=== PATIENT | male | born 1960 | race Caucasian/White ===

== ENCOUNTER 2018-02-05 07:32 | Emergency (ER) | payer BC, OTHER ==
[2018-02-05 07:46] VITALS: TEMP 98.1; BMI 24.2
--- NOTE | 2018-02-05 08:05 | PDOC ---
History of Present Illness - General Chief Complaint: Back Pain Stated Complaint: R/O STONES History Source: Patient Exam Limitations: No Limitations - History of Present Illness Initial Comments: 02/05/18 09:14 HPI: This 57-year-old male presents to the emergency room with complaints of lower back pain bilaterally since Saturday, 2 days after shoveling snow. He states he took some Tylenol but that didn't seem to help. He denies loss of bowel/bladder, numbness, tingling, or weakness to legs. Pt ambulated to ER. Chief Compliant:lower back pain at lumbar sacral region Pain location: bilateral lumbar region pain no pain on spine but to each side Duration: 2 days Modifying factors:shoveled snow. Quality:sharp Radiating:remains in region, no radiation Severity:moderate Time:constant getting worse PMH: HTN, HLD, FH: Pt has not recently traveled outside the country in the last 30 days. Pt has not been in contact with people who have traveled out of the country, in contact with people who have been ill with fever, n, v, d. SH: smoking use: NONE illicit drug use: NONE alcohol use: NONE employment/educational status: sexual history: PSH: none Home med use noted on JAN Allergies:nka Immunizations: PCP: none Cards: Ronaldo Past History - Past Medical History Allergies/Adverse Reactions: Allergies Allergy/AdvReac Type Severity Reaction Status Date / Time No Known Allergies Allergy Verified 02/05/18 07:38 Home Medications: Ambulatory Orders Aspirin 81 mg PO DAILY 02/05/18 Atorvastatin Ca [Lipitor] 0 mg PO HS 02/05/18 Cyclobenzaprine HCl [Flexeril 10 mg] 10 mg PO BID PRN #15 tablet 02/05/18 Metoprolol Succinate [Toprol Xl] 0 mg PO DAILY 02/05/18 Naproxen [Naprosyn -] 375 mg PO Q12H #30 tablet 02/05/18 Cardiac Disorders: Yes (Paroxysmal Rapid Afib/LVH ? by EKG) COPD: No HTN: Yes Hypercholesterolemia: Yes - Surgical History Cholecystectomy: Yes - Immunization History Immunization Up to Date: Yes - Suicide/Smoking/Psychosocial Hx Smoking Status: Yes Smoking History: Never smoked Have you smoked in the past 12 months: No Number of Cigarettes Smoked Daily: 20 Information on smoking cessation initiated: No Hx Alcohol Use: No Drug/Substance Use Hx: No Substance Use Type: None Hx Substance Use Treatment: No Review of Systems - Review of Systems Able to Perform ROS?: Yes Comments:: 02/05/18 09:30 General statement: Lower back pain Hematology: neg history of bleeding/blood thinners ()ASA 81) Skin: Neg for lesions, rash, bruising. HEENT: Neg symptoms Respiratory: Neg SOB or difficulty in breathing Cardiac: Neg chest pain GI: Neg pain, n/v : Neg problems on voiding MS: Neg for joint pain/stiffness, no edema, lower back pain Neuro: Neg for LOC, weakness, Endocrine: Neg for excess thirst/hunger, cold/heat intolerance, excess sweating Allergies: Neg for allergies *Physical Exam - Vital Signs Last Vital Signs Temp Pulse Resp BP Pulse Ox 98.1 F 94 H 20 143/85 99 02/05/18 07:34 02/05/18 07:34 02/05/18 07:34 02/05/18 07:34 02/05/18 07:34 - Physical Exam Comments: 02/05/18 09:31 General Appearance: This 57 yr old male who is uncomfortable from pain V/S: hemodynamically stable, afebrile Skin: WNL of pt's skin color, no signs of pallor, mottling, cyanosis Head:symmetrical Eyes: EOM's intact, PERRLA Ears: denies pain Nose: patent Throat: lips, teeth, gums, tongue, buccal mucos pink and moist Lungs: Chest symmetry equal. Cap refill <3 seconds. Lung sounds clear Cardiac: PMI at R 4MCL space, pos S1 and S2, regular rate. Abdomen: Soft, round, nontender : Not observed Muscularskeletal: Gait steady, ambulated in to ER, no edema +PMS, lower back pain +, No miguel, + reflexes, + weighbear, FROM, neg CV tenderness Neuro: AAOx3, cognitively intact, speech clear and appropriate. ED Treatment Course - LABORATORY CBC & Chemistry Diagram: 02/05/18 08:12 02/05/18 08:12 Medical Decision Making - Medical Decision Making 02/05/18 09:41 57-year-old male presents here with complaints of lower back pain. He states that this began after shoveling snow. He is no numbness or tingling that running down his legs and he ambulated into the emergency room. He's never had this happen before. He has no difficulty in urinating. Plan UA Lumbar sacral x-ray Labs Toradol and IV fluid Ice pack Will reassess 02/05/18 09:54 So complaining of lower back pain had received Toradol and a bag of IV fluids. His UA is negative. His low lumbar sacral x-ray shows some degeneration but does not have any poor spacing. Vertebral spacing within normal limits. At this time and going to discharge the patient to receive some Flexeril and Naprosyn for pain and spasm. I will have him follow-up with his PCP. I will give him a referral for a PCP as he does not have one. *DC/Admit/Observation/Transfer Diagnosis at time of Disposition: Lower back pain Qualifiers: Chronicity: acute Back pain laterality: bilateral Sciatica presence: without sciatica Qualified Code(s): M54.5 - Low back pain - Discharge Dispostion Disposition: HOME Condition at time of disposition: Fair Admit: No - Referrals Referrals: Jonathan Sneed MD [Primary Care Provider] - [facility] [Provider Group] - Patient Instructions Printed Discharge Instructions: DI for Low Back Pain Additional Instructions: Discharge instructions 1. Please follow up with your primary physician within the next few days and explain that you have been seen here in the Emergency Room for lower back pain. 2. If you experience any worsening of symptoms, numbness, tingling, increase pain, please return to the ER 3. Rest, ice, no heavy lifting, bending, pulling, and take pain meds as prescribed. do not drive a care if under influence of medications. 4. Drink plenty of water - Post Discharge Activity Forms/Work/School Notes: Back to Work
[2018-02-05] MEDS ORDERED: SODIUM CHLORIDE 1,000 ML IV STA (08:25)
[2018-02-05] MEDS ORDERED: KETOROLAC TROMETHAMINE 30 MG/1 ML VIAL IVPUSH ONE (08:25)
[2018-02-05] MEDS ORDERED: KETOROLAC TROMETHAMINE 30 MG/1 ML VIAL ONE (08:44)
--- NOTE | 2018-02-05 08:45 | PDOC ---
*Physical Exam - Vital Signs Last Vital Signs Temp Pulse Resp BP Pulse Ox 98.1 F 94 H 20 143/85 99 02/05/18 07:34 02/05/18 07:34 02/05/18 07:34 02/05/18 07:34 02/05/18 07:34 - Physical Exam Comments: 02/05/18 08:44 The patient was examined by [GIRISH Arana] under my direct supervision. I personally evaluated the patient. I concur with the above findings and the plan of care. ED Treatment Course - LABORATORY CBC & Chemistry Diagram: 02/05/18 08:12 02/05/18 08:12 *DC/Admit/Observation/Transfer Diagnosis at time of Disposition: Lower back pain - Discharge Dispostion Disposition: HOME Condition at time of disposition: Fair - Prescriptions Prescriptions: Cyclobenzaprine HCl [Flexeril 10 mg] 10 mg PO BID PRN #15 tablet PRN Reason: Back Pain Naproxen [Naprosyn -] 375 mg PO Q12H #30 tablet - Referrals Referrals: [facility] [Provider Group] Jonathan Sneed MD [Primary Care Provider] - - Patient Instructions Printed Discharge Instructions: DI for Low Back Pain Additional Instructions: Discharge instructions 1. Please follow up with your primary physician within the next few days and explain that you have been seen here in the Emergency Room for lower back pain. 2. If you experience any worsening of symptoms, numbness, tingling, increase pain, please return to the ER 3. Rest, ice, no heavy lifting, bending, pulling, and take pain meds as prescribed. do not drive a care if under influence of medications. 4. Drink plenty of water - Post Discharge Activity Forms/Work/School Notes: Back to Work
[2018-02-05 09:04] LABS: BASO % 0.8 % (0-2.0); EOS % 1.3 % (0-4.5); HEMATOCRIT 42.9 % (35.4-49); HEMOGLOBIN 14.8 GM/dL (11.7-16.9); LYMPH % 26.8 % (8-40); MCHC 34.6 g/dl (32.0-35.9); MEAN CELL VOLUME 89.6 fl (80-96); MEAN PLT VOLUME 7.2 fl (7.5-11.1); MONO % 8.6 % (3.8-10.2); NEUT % 62.5 % (42.8-82.8); PLATELET COUNT 209 K/MM3 (134-434); RBC 4.79 M/mm3 (4.00-5.60); WHITE BLOOD COUNT 6.1 K/mm3 (4.0-10.0)
[2018-02-05 09:05] LABS: URINE APPEARANCE CLEAR; URINE BILIRUBIN NEGATIVE (<2.0 mg/dL); URINE BLOOD NEGATIVE (NEGATIVE); URINE COLOR YELLOW; URINE GLUCOSE (UA) NEGATIVE (NEGATIVE); URINE KETONE TRACE (NEGATIVE); URINE LEUK ESTERASE NEGATIVE (NEGATIVE); URINE NITRITE NEGATIVE (NEGATIVE); URINE PROTEIN NEGATIVE (NEGATIVE)
[2018-02-05 09:28] LABS: ANION GAP 4 (8-16); BILIRUBIN,TOTAL 0.4 mg/dL (0.2-1.0); BLOOD UREA NITROGEN 15 mg/dL (7-18); CALCIUM 9.2 mg/dL (8.5-10.1); CHLORIDE 106 mmol/L (98-107); CO2 28 mmol/L (21-32); CREATININE 0.7 mg/dL (0.7-1.3); GLUCOSE,RANDOM 106 mg/dL (74-106); POTASSIUM 4.3 mmol/L (3.5-5.1); SGOT/AST 31 U/L (15-37); SGPT/ALT 32 U/L (12-78); SODIUM 138 mmol/L (136-145); TOT PROT 7.1 g/dl (6.4-8.2)
[2018-02-05 09:29] LABS: ALK PHOS 58 U/L (45-117)
[2018-02-05 10:07] VITALS: BP 134/66; PULSE 87
== END 2018-02-05 10:11 | disposition home or self-care (01) ==
LOC: JER 07:32
PROC: 3E0333Z Introduction of Anti-inflammatory into Peripheral Vein, Percutaneous Approach (ICD-10-PCS; principal; 2018-02-05)
PROC: 3E0337Z Introduction of Electrolytic and Water Balance Substance into Peripheral Vein, Percutaneous Approach (ICD-10-PCS; 2018-02-05)
DX: M54.5 Low back pain (principal); I10 Essential (primary) hypertension; I48.0 Paroxysmal atrial fibrillation; E78.5 Hyperlipidemia, unspecified
CPT/HCPCS: 36415; 72100-TC-FY; 80053; 81003; 85025; 99285-25; J7030

== ENCOUNTER 2018-03-07 08:59 | Emergency (ER) | payer BC ==
[2018-03-07 09:12] VITALS: BP 150/79; PULSE 98; TEMP 98.3; BMI 24.2
--- NOTE | 2018-03-07 09:25 | PDOC ---
History of Present Illness - General Chief Complaint: Back Pain Stated Complaint: BACK PAIN Time Seen by Provider: 03/07/18 09:24 History Source: Patient Exam Limitations: No Limitations Past History - Travel Traveled outside of the country in the last 30 days: No Close contact w/someone who was outside of country & ill: No - Past Medical History Allergies/Adverse Reactions: Allergies Allergy/AdvReac Type Severity Reaction Status Date / Time No Known Allergies Allergy Verified 03/07/18 09:10 Home Medications: Ambulatory Orders Aspirin 81 mg PO DAILY 02/05/18 Atorvastatin Ca [Lipitor] 0 mg PO HS 02/05/18 Cyclobenzaprine HCl [Flexeril 10 mg] 10 mg PO BID PRN #15 tablet 02/05/18 Metoprolol Succinate [Toprol Xl] 0 mg PO DAILY 02/05/18 Naproxen [Naprosyn -] 375 mg PO Q12H #30 tablet 02/05/18 Cyclobenzaprine HCl [Flexeril -] 10 mg PO HS #10 tablet 03/07/18 Methylprednisolone [Medrol Dose Ra] 4 mg PO ASDIR #21 tablet 03/07/18 Cardiac Disorders: Yes (Paroxysmal Rapid Afib/LVH ? by EKG) CVA: No COPD: No HTN: Yes Hypercholesterolemia: Yes - Surgical History Cholecystectomy: Yes - Immunization History Immunization Up to Date: Yes - Suicide/Smoking/Psychosocial Hx Smoking Status: Yes Smoking History: Current every day smoker Have you smoked in the past 12 months: No Number of Cigarettes Smoked Daily: 20 Information on smoking cessation initiated: No Hx Alcohol Use: No Drug/Substance Use Hx: No Substance Use Type: None Hx Substance Use Treatment: No Review of Systems - Review of Systems Able to Perform ROS?: Yes Comments:: 03/07/18 09:24 CONSTITUTIONAL: Absent: fever, chills, diaphoresis, generalized weakness, malaise, loss of appetite GENITOURINARY: Absent: dysuria, frequency, urgency, hesitancy, hematuria, flank pain, genital pain MUSCULOSKELETAL: Present: Low back pain Absent: myalgia, arthralgia, joint swelling SKIN: Absent: rash, itching, pallor NEUROLOGIC: Absent: headache, focal weakness or paresthesias, dizziness, unsteady gait, seizure, mental status changes, bladder or bowel incontinence tion, hallucinations. Is the patient limited Hungarian proficient: No *Physical Exam - Vital Signs Last Vital Signs Temp Pulse Resp BP Pulse Ox 98.3 F 98 H 18 150/79 97 03/07/18 09:10 03/07/18 09:10 03/07/18 09:10 03/07/18 09:10 03/07/18 09:10 - Physical Exam Comments: 03/07/18 09:25 GENERAL: Well developed, well nourished. Awake and alert. No acute distress. HEENT: Normocephalic, atraumatic. PERRLA, EOMI. No conjunctival pallor. Sclera are non- icteric. Moist mucous membranes. Oropharynx is clear. NECK: Supple. Full ROM. No JVD. Carotid pulses 2+ and symmetric, without bruits. No thyromegaly. No lymphadenopathy. CARDIOVASCULAR: Regular rate and rhythm. No murmurs, rubs, or gallops. Distal pulses are 2+ and symmetric. PULMONARY: No evidence of respiratory distress. Lungs clear to auscultation bilaterally. No wheezing, rales or rhonchi. ABDOMINAL: Soft. Non-tender. Non-distended. No rebound or guarding. No organomegaly. Normoactive bowel sounds. MUSCULOSKELETAL Normal range of motion at all joints. No bony deformities or tenderness. No CVA tenderness. EXTREMITIES: No cyanosis. No clubbing. No edema. No calf tenderness. SKIN: Warm and dry. Normal capillary refill. No rashes. No jaundice. NEUROLOGICAL: Alert, awake, appropriate. Cranial nerves 2-12 intact. No deficits to light touch and temperature in face, upper extremities and lower extremities. No motor deficits in the in face, upper extremities and lower extremities. Normoreflexic in the upper and lower extremities. Normal speech. Toes are down- going bilaterally. Gait is normal without ataxia. PSYCHIATRIC: Cooperative. Good eye contact. Appropriate mood and affect. *DC/Admit/Observation/Transfer Diagnosis at time of Disposition: Lower back pain Qualifiers: Chronicity: acute Back pain laterality: bilateral Sciatica presence: with sciatica Sciatica laterality: bilateral sciatica Qualified Code(s): M54.42 - Lumbago with sciatica, left side; M54.41 - Lumbago with sciatica, right side; M54.41 - Lumbago with sciatica, right side - Discharge Dispostion Disposition: HOME Condition at time of disposition: Stable Admit: No - Referrals Referrals: Jonathan Sneed MD [Primary Care Provider] - Gregor Fox MD [Staff Physician] - Matty Ward MD, FAANS [Staff Physician] - - Patient Instructions Printed Discharge Instructions: DI for Low Back Pain Additional Instructions: You have low back pain due to a muscle spasm. Please take the steroids as directed. You were also prescribed Flexeril. Please take the medication before you go to bed. Do not drive after taking this medication as it may make you sleepy. You may use warm compresses on your back to help with her symptoms. Pleasefollow-up with your primary care doctor. If your symptoms do not resolve in 3-5 days, follow-up with orthopedics and neurosurgery. A referral has been provided for you. Return to the emergency department if you have worsening back pain, bladder or bowel incontinence, numbness and tingling in her legs, changes in the way you walk, or any new or worsening symptoms. - Post Discharge Activity Forms/Work/School Notes: Back to Work
[2018-03-07] MEDS ORDERED: KETOROLAC TROMETHAMINE 60 MG/2 ML VIAL IM ONE (09:50)
[2018-03-07] MEDS ORDERED: KETOROLAC TROMETHAMINE 60 MG/2 ML VIAL ONE (09:50)
== END 2018-03-07 10:20 | disposition home or self-care (01) ==
LOC: JERFT 08:59
PROC: 3E0233Z Introduction of Anti-inflammatory into Muscle, Percutaneous Approach (ICD-10-PCS; principal; 2018-03-07)
DX: M54.42 Lumbago with sciatica, left side (principal); M54.41 Lumbago with sciatica, right side; F17.210 Nicotine dependence, cigarettes, uncomplicated; I10 Essential (primary) hypertension; E78.00 Pure hypercholesterolemia, unspecified; I48.91 Unspecified atrial fibrillation; Z79.82 Long term (current) use of aspirin
CPT/HCPCS: 99281-25

== ENCOUNTER 2019-10-13 00:48 | Inpatient (IN) | payer BC ==
--- NOTE | 2019-10-13 00:57 | PDOC ---
History of Present Illness - General Chief Complaint: Shortness of Breath Stated Complaint: RESPIRATORY DISTRESS Time Seen by Provider: 10/13/19 00:57 History Source: Patient Exam Limitations: No Limitations - History of Present Illness Initial Comments: 10/13/19 01:22 Erik Lopez is a 59yM w PMHx HTN presenting w SOB and cough. Started 3 days ago, associated w nasal congestion, subjective fevers, chest pain w coughing, body aches, headache. Given 3x duonebs and 10 decadron by EMS going to ED. Denies past dx of asthma or COPD. Denies vision change, nausea/vomiting. 1/2 pack/day smoker. Past History - Past Medical History Allergies/Adverse Reactions: Allergies Allergy/AdvReac Type Severity Reaction Status Date / Time No Known Allergies Allergy Verified 10/13/19 01:12 Home Medications: Ambulatory Orders Aspirin 81 mg PO DAILY 02/05/18 Atorvastatin Ca [Lipitor] 40 mg PO HS 02/05/18 Metoprolol Succinate [Toprol Xl] 25 mg PO DAILY 02/05/18 Cyclobenzaprine HCl [Flexeril -] 10 mg PO HS #10 tablet 03/07/18 Cardiac Disorders: Yes (Paroxysmal Rapid Afib/LVH ? by EKG) CVA: No COPD: No HTN: Yes Hypercholesterolemia: Yes - Surgical History Cholecystectomy: Yes - Immunization History Immunization Up to Date: Yes - Psycho Social/Smoking Cessation Hx Smoking Status: Yes Smoking History: Current every day smoker Have you smoked in the past 12 months: No Number of Cigarettes Smoked Daily: 20 Information on smoking cessation initiated: No Hx Alcohol Use: No Drug/Substance Use Hx: No Substance Use Type: None Hx Substance Use Treatment: No Review of Systems - Review of Systems Constitutional: Yes: Chills, Fever, Malaise HEENTM: Yes: Nose Congestion. No: Eye Pain, Recent change in vision Respiratory: Yes: Cough, Shortness of Breath Cardiac (ROS): Yes: Chest Pain. No: Palpitations, Syncope ABD/GI: No: Abdominal Distended, Constipated, Diarrhea, Nausea, Vomiting : No: Burning, Dysuria, Discharge, Flank Pain, Hematuria Musculoskeletal: No: Back Pain, Joint Pain, Neck Pain Integumentary: No: Bruising, Flushing, Lesions Neurological: Yes: Headache. No: Seizure, Tingling, Weakness Psychiatric: No: Anxiety, Depression Endocrine: No: Excessive Sweating, Flushing, Intolerance to Cold, Intolerance to Heat Hematologic/Lymphatic: No: Anemia, Blood Clots *Physical Exam - Vital Signs Last Vital Signs Temp Pulse Resp BP Pulse Ox 97.9 F 112 H 26 H 146/85 98 10/13/19 00:51 10/13/19 00:51 10/13/19 00:51 10/13/19 00:51 10/13/19 00:51 - Physical Exam General Appearance: Yes: Nourished, Appropriately Dressed, Mild Distress HEENT: positive: EOMI, EZRA, Normal Voice, Nasal Congestion, Rhinorrhea, Hearing Grossly Normal. negative: Scleral Icterus (R), Scleral Icterus (L) Respiratory/Chest: positive: Accessory Muscle Use, Labored Respiration, Rhonchi , Wheezing. negative: Chest Tender, Crackles, Stridor Cardiovascular: positive: Regular Rhythm, S1, S2, Tachycardia. negative: Edema , Murmur Extremity: negative: Swelling Integumentary: positive: Normal Color Neurologic: positive: chemical processing supervisor II-XII NML intact, Fully Oriented, Alert, Normal Response, Responsive. negative: Sensory Deficit, Confused, Disoriented ED Treatment Course - LABORATORY CBC & Chemistry Diagram: 10/13/19 01:18 10/13/19 01:18 Medical Decision Making - Medical Decision Making 10/13/19 01:25 CBC CMP trop flu swab EKG shows sinus tachycardia, LVH, HR 116, QTc 455, no ST changes CXR clear lungs 2x duoneb, 1 Mg, tylenol in ED 2L NC --- Erik Lopez is a 59yM w PMHx HTN presenting w SOB and cough d/t undiagnosed COPD exacerbation (wheezing, current smoker). Low concern for ACS (no ST changes EKG, trop neg) vs PNA (clear lungs on CXR) vs flu (tested neg). Given 3x duonebs and 10 decadron by EMS and 2x duoneb, 1 Mg and tylenol in ED. O2sat wnl on 2L NC (desat to low 90s on RA, baseline RA). Admit to m/s for SOB likely d/t COPD exacerbation Discharge - Discharge Information Problems reviewed: Yes Clinical Impression/Diagnosis: SOB (shortness of breath) Condition: Improved - Follow up/Referral - Patient Discharge Instructions - Post Discharge Activity
[2019-10-13] MEDS ORDERED: MAGNESIUM SULF 50% (8.12 MEQ/2 ML-1 GM VIAL) IVPB ONE (01:14)
[2019-10-13] MEDS ORDERED: ACETAMINOPHEN 500 MG TABLET (FP) PO ONE (01:23)
--- NOTE | 2019-10-13 01:25 | PDOC ---
Documentation entered by Yossi Brannon SCRIBE, acting as scribe for Neeru Bond MD. Neeru Bond MD: This documentation has been prepared by the Clovis wadsworth Nirvannie, SCRIBE, under my direction and personally reviewed by me in its entirety. I confirm that the documentation accurately reflects all work, treatment, procedures, and medical decision making performed by me. Attending Attestation - Resident Resident Name: Wilman Dutta - ED Attending Attestation I have performed the following: I have examined & evaluated the patient, The case was reviewed & discussed with the resident, I agree w/resident's findings & plan, Exceptions are as noted - HPI HPI: 10/13/19 01:23 59-year-old male who presents with complaint of body aches, nasal congestion, cough and headache for 3 days - Physicial Exam PE: 10/13/19 01:23 Slender 59-year-old male with complaint of body aches, cough nasal congestion headache Head normocephalic atraumatic Neck is no nuchal rigidity Lungs with scattered coarse rhonchi and wheezing CVS tachycardia Abdomen nontender nondistended Skin is warm and dry Neuro alert and oriented x3, using moving all his extremities purposefully, conversant - Medical Decision Making 10/13/19 01:24 Differential diagnosis includes COPD exacerbation, influenza, community- acquired pneumonia, CHF, viral syndrome Plan bronchodilators, steroids, IV fluids, Tylenol, influenza swab CBC chemistry EKG and chest x-ray and reevaluation
[2019-10-13] MEDS ORDERED: MAGNESIUM 1GM/D5W - 1 GM/100 ML IVPB IVPB ONE (01:29)
[2019-10-13] MEDS ORDERED: ACETAMINOPHEN 325 MG TABLET (FP) ONE (01:29)
[2019-10-13 01:51] LABS: BASO % 0.3 % (0-2.0); HEMATOCRIT 44.4 % (35.4-49); HEMOGLOBIN 15.3 GM/dL (11.7-16.9); LYMPH % 16.2 % (8-40); MCH 31.2 pg (25.7-33.7); MCHC 34.5 g/dl (32.0-35.9); MEAN CELL VOLUME 90.4 fl (80-96); MEAN PLT VOLUME 7.6 fl (7.5-11.1); MONO % 12.7 % (3.8-10.2); NEUT % 70.8 % (42.8-82.8); PLATELET COUNT 168 K/MM3 (134-434); RBC 4.91 M/mm3 (4.00-5.60); RDW 13.8 % (11.9-15.9)
[2019-10-13] MEDS ORDERED: ALBUTEROL SO4 2.5/IPRATROPIUM 0.5 INH SOL 3 ML VIAL.NEB. NEB ONE ×2 (02:07→02:17)
[2019-10-13 02:25] LABS: ALBUMIN 4.2 g/dl (3.4-5.0); BILIRUBIN,TOTAL 0.6 mg/dL (0.2-1); BLOOD UREA NITROGEN 17.1 mg/dL (7-18); CALCIUM 9.3 mg/dL (8.5-10.1); CREATININE 0.8 mg/dL (0.55-1.3); POTASSIUM 3.9 mmol/L (3.5-5.1); TOT PROT 7.8 g/dl (6.4-8.2)
[2019-10-13] MEDS ORDERED: methylPREDNISolone NA SUCC 40 MG/1 ML VIAL IVPUSH SCH ×2 (03:30→10:00)
--- NOTE | 2019-10-13 03:50 | PN ---
Teaching Attending Note Name of Resident: Isreal Brown ATTENDING PHYSICIAN STATEMENT I saw and evaluated the patient. I reviewed the resident's note and discussed the case with the resident. I agree with the resident's findings and plan as documented. SUBJECTIVE: Patient is a 59 year old man with PMH of HTN, HLD, Tobacco use, Cholecystectomy , ?COPD and ?Paroxysmal Afib presenting with SOB and cough for 3 days. He has associated with nasal congestion, subjective fevers, chest pain with coughing, body aches and headache. He was given Duonebs x 3 and 10 mg Decadron by EMS en route. Denies vision change, nausea, vomiting, diarrhea, abdominal pain, headache, dizziness or dysuria. Denies alcohol or illicit drug use. Denies sick contacts or recent travel. OBJECTIVE: Alert Vital Signs Period Temp Pulse Resp BP Sys/Armendariz Pulse Ox Last 24 Hr 99.1 F 112 26 146/85 98 HEENT: No Jaundice, eye redness or discharge, PERRLA, EOMI. Normocephalic, atraumatic. External ears are normal and hearing is grossly intact. No nasal discharge. Neck: Supple, nontender. No palpable adenopathy or thyromegaly. No JVD Chest: Good effort. Expiratory wheezing. Clear to percussion. Heart: Regular. No S3, rub or murmur Abdomen: Not distended, soft, nontender and no HSM. No rebound or guarding. Normal bowel sounds. Ext: Peripheral pulses intact. No leg edema. Skin: Warm and dry. No petechiae, rash or ecchymosis. Neuro: Alert. Oriented x3. CN 2-12 grossly intact. Sensation grossly intact in all four extremities and DTR are symmetric. Psych: Appropriate mood and affect. Good insight. Current Medications Generic Name Dose Route Start Last Admin Trade Name Freq PRN Reason Stop Dose Admin Albuterol Sulfate amp 10/13/19 03:25 Ventolin 0.083% Nebulizer Soln - NEB Q4H PRN Dyspnea Albuterol/Ipratropium 1 amp 10/13/19 08:00 Duoneb - NEB RQID ODELL Enoxaparin Sodium 40 mg 10/13/19 10:00 Lovenox - SQ DAILY [facility] Methylprednisolone Sodium Succinate 40 mg 10/13/19 03:45 Solu-Medrol - IVPUSH Q6H [facility] Home Medications Medication Instructions Recorded Aspirin 81 mg PO DAILY 02/05/18 Atorvastatin Ca [Lipitor] 40 mg PO HS 02/05/18 Metoprolol Succinate [Toprol Xl] 25 mg PO DAILY 02/05/18 Cyclobenzaprine HCl [Flexeril -] 10 mg PO HS #10 tablet 03/07/18 Abnormal Lab Results 10/13/19 10/13/19 01:18 01:18 Monocytes % 12.7 H Random Glucose 136 H ASSESSMENT AND PLAN: 1. COPD exacerbation - May have been precipitated by URI or viral syndrome. Flu swab is negative. CXR shows hyperinflated lungs and increased interstitial markings. EKG shows sinus tachycradia, LVH and T wave inversion in III, aVF and V5-6. No old EKG for comparison - will repeat EKG. Being treated with duoneb, solumedrol, symbicort and azithromycin. Get HbA1c. Will continue comprehensive care for all of patients comorbid conditions. 2. Tobacco Use Counseled on risks associated with tobacco use. We will provide patient all the necessary assistance to facilitate smoking cessation and prescribe Nicotine patch. 3. Hypertension - Restart suitable outpatient antihypertensive drugs when clinically appropriate. Revise regimen to ensure [id number] excellent BP control and mitochondrial disorders counselor patient on the injurious effects of uncontrolled hypertension. Nonpharmacologic measures to control hypertension like weight loss , salt restriction and exercise discussed. Importance of adherence to treatment regimen and attainment of normotension emphasized. 4. DVT prophylaxis - Lovenox 40 mg SQ q 24 hours. 5. Advance directives - Full code
--- NOTE | 2019-10-13 04:11 | HP ---
CHIEF COMPLAINT: cough/sob PCP: Dr. Sneed HISTORY OF PRESENT ILLNESS: This is a 59 y/o M with a PMHx of HTN, HLD, COPD exacerbations (not on home O2), presenting s/p 3 days of productive cough consisting of white sputum. He reports having associated chills, rhinorrhea, muscle aches, and fatigue/malaise during this period. He denies hemoptysis, fever, recent sick contacts, bowel/bladder complaints. He denies receiving flu shot or pna shot. Denies any recent travel. 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 ER course was notable for: (1) 1g Magnesium, duoneb, tylenol (2)2L NC, EKG- NSR, TWI's, 116 bpm (3) CXR- negative, Glu- 136 Social History: Smokin ppd X 38 yrs Alcohol: denies Drugs: denies Allergies No Known Allergies Allergy (Verified 10/13/19 01:12) HOME MEDICATIONS: Home Medications Medication Instructions Recorded Aspirin 81 mg PO DAILY 02/05/18 Atorvastatin Ca [Lipitor] 40 mg PO HS 02/05/18 Metoprolol Succinate [Toprol Xl] 25 mg PO DAILY 02/05/18 Cyclobenzaprine HCl [Flexeril -] 10 mg PO HS #10 tablet 03/07/18 REVIEW OF SYSTEMS Negative except in HPI. PHYSICAL EXAMINATION Vital Signs - 24 hr 10/13/19 00:51 Temperature 99.1 F Pulse Rate 112 H Respiratory 26 H Rate Blood Pressure 146/85 O2 Sat by Pulse 98 Oximetry (%) GENERAL: Awake, alert, and fully oriented, in no acute distress. LUNGS: Breath sounds equal, inspiratory wheezes, no crackles. Improved with chest PT. No accessory muscle use. HEART: Tachy and regular rhythm, normal S1 and S2 without murmur, rub or gallop. ABDOMEN: Soft, nontender, not distended, normoactive bowel sounds, no guarding, no rebound, no masses. No hepatomegaly or splenomegaly. LOWER EXTREMITIES: 2+ pulses, warm, well-perfused. No calf tenderness. No peripheral edema. Laboratory Results - last 24 hr 10/13/19 10/13/19 10/13/19 01:18 01:18 01:18 WBC 8.0 RBC 4.91 Hgb 15.3 Hct 44.4 MCV 90.4 MCH 31.2 MCHC 34.5 RDW 13.8 Plt Count 168 MPV 7.6 Absolute Neuts (auto) 5.7 Neutrophils % 70.8 Lymphocytes % 16.2 D Monocytes % 12.7 H Eosinophils % 0.0 D Basophils % 0.3 Nucleated RBC % 0 Sodium Potassium Chloride Carbon Dioxide Anion Gap BUN Creatinine Est GFR (CKD-EPI)AfAm Est GFR (CKD-EPI)NonAf Random Glucose Calcium Total Bilirubin AST ALT Alkaline Phosphatase Creatine Kinase 207 Creatine Kinase Index 1.0 CK-MB (CK-2) 2.2 Troponin I < 0.02 Total Protein Albumin Influenza A (Rapid) Negative Influenza B (Rapid) Negative 10/13/19 01:18 WBC RBC Hgb Hct MCV MCH MCHC RDW Plt Count MPV Absolute Neuts (auto) Neutrophils % Lymphocytes % Monocytes % Eosinophils % Basophils % Nucleated RBC % Sodium 136 Potassium 3.9 Chloride 102 Carbon Dioxide 24 Anion Gap 11 BUN 17.1 Creatinine 0.8 Est GFR (CKD-EPI)AfAm 113.33 Est GFR (CKD-EPI)NonAf 97.78 Random Glucose 136 H Calcium 9.3 Total Bilirubin 0.6 AST 36 ALT 30 Alkaline Phosphatase 58 Creatine Kinase Creatine Kinase Index CK-MB (CK-2) Troponin I Total Protein 7.8 Albumin 4.2 Influenza A (Rapid) Influenza B (Rapid) ASSESSMENT/PLAN: This is a 52 y/o F with a PMHx of 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 Gibson and was Rx in [facility] but failed management) who was sent to the ER by Dr. Gibson due to her increased abdominal swelling causing the patient a significant amount of discomfort. #Acute COPD exacerbation 2/2 viral illness - pt reporting viral symptoms - influenza rapid test negative - CXR- no signs of acute infiltrate, hyper-inflated lungs, with increased interstitial markings significant for COPD - EKG showing sinus tachy w TWI's in III, aVF and V5-6, no previous EKG for comparison - negative trops - will rpt in AM however likely due to acute COPD exacerbation - maintain SaO2 88-92% to preserve respiratory drive given these pts are usually chronically hypercapneic (PaO2 55-60mmHg) - albuterol neb q4h prn - duoneb 1RQID maria luz - solumedrol 40Q6 - azithromycin given pt's productive cough and its anti-inflammatory benefits. - started pt on symbicort, as pt denies being placed on inhalers as o/p - ordered pneumovax 13 given pt is 19-64 yrs of age with chronic illness (COPD exacerbations) - recommend flu shot when pt's acute copd exacerbation resolves - recommend smoking cessation #Hyperglycemia - will rpt in AM - no hx of diabetes - no signs or symptoms of diabetes - A1C normal 3 mths ago per patient, will rpt #HTN - continue metoprolol #HLD - continue simvastatin DVT ppx: Lovenox 40SQ daily Visit type - Emergency Visit Emergency Visit: Yes ED Registration Date: 10/13/19 Care time: The patient presented to the Emergency Department on the above date and was hospitalized for further evaluation of their emergent condition. - New Patient This patient is new to me today: Yes Date on this admission: 10/13/19 - Critical Care Critical Care patient: No ATTENDING PHYSICIAN STATEMENT I saw and evaluated the patient. I reviewed the resident's note and discussed the case with the resident. I agree with the resident's findings and plan as documented. SUBJECTIVE: OBJECTIVE: ASSESSMENT AND PLAN:
[2019-10-13] MEDS ORDERED: PNEUMOC 13-VAL CONJ-DIP CRM/PF 0.5 ML DISP.SYRIN IM ONE (04:13)
[2019-10-13 05:06] LABS: N-TERMINAL BNP 174.7 pg/ml (5-125)
[2019-10-13] MEDS: methylPREDNISolone NA SUCC 40 MG/1 ML VIAL IVPUSH SCH ×4 (05:11→17:15)
[2019-10-13] MEDS ORDERED: methylPREDNISolone NA SUCC 40 MG/1 ML VIAL ONE (05:15)
[2019-10-13 06:25] LABS: BASO % 0.2 % (0-2.0); HEMATOCRIT 42.6 % (35.4-49); HEMOGLOBIN 14.6 GM/dL (11.7-16.9); LYMPH % 6.1 % (8-40); MCH 31.1 pg (25.7-33.7); MCHC 34.3 g/dl (32.0-35.9); MEAN CELL VOLUME 90.5 fl (80-96); MEAN PLT VOLUME 7.4 fl (7.5-11.1); MONO % 3.5 % (3.8-10.2); NEUT % 90.2 % (42.8-82.8); PLATELET COUNT 171 K/MM3 (134-434); RBC 4.71 M/mm3 (4.00-5.60); RDW 13.7 % (11.9-15.9)
[2019-10-13 06:37] LABS: BLOOD UREA NITROGEN 20.4 mg/dL (7-18); CALCIUM 9.1 mg/dL (8.5-10.1); CREATININE 1.1 mg/dL (0.55-1.3); MAGNESIUM 2.3 mg/dL (1.8-2.4); PHOSPHOROUS 4.2 mg/dL (2.5-4.9); POTASSIUM 4.1 mmol/L (3.5-5.1)
[2019-10-13] MEDS: ALBUTEROL SO4 2.5/IPRATROPIUM 0.5 INH SOL 3 ML VIAL.NEB. NEB SCH ×4 (07:33→20:45)
--- NOTE | 2019-10-13 09:06 | EKG ---
Test Reason : Blood Pressure : / mmHG Vent. Rate : 077 BPM Atrial Rate : 077 BPM P-R Int : 104 ms QRS Dur : 094 ms QT Int : 418 ms P-R-T Axes : 085 076 008 degrees QTc Int : 473 ms SINUS RHYTHM WITH SHORT MO VOLTAGE CRITERIA FOR LEFT VENTRICULAR HYPERTROPHY ABNORMAL ECG Confirmed by Geovanny Brown MD ([id number]) on 10/13/2019 9:05:56 AM Referred By: Confirmed By:Geovanny Brown MD
--- NOTE | 2019-10-13 09:06 | EKG ---
Test Reason : Blood Pressure : / mmHG Vent. Rate : 116 BPM Atrial Rate : 116 BPM P-R Int : 094 ms QRS Dur : 088 ms QT Int : 328 ms P-R-T Axes : 076 067 008 degrees QTc Int : 455 ms SINUS TACHYCARDIA WITH SHORT [place] MODERATE VOLTAGE CRITERIA FOR LVH, MAY BE NORMAL VARIANT NONSPECIFIC ST AND T WAVE ABNORMALITY ABNORMAL ECG WHEN COMPARED WITH ECG OF 11-DEC-2011 16:48, SINUS RHYTHM HAS REPLACED ATRIAL FLUTTER VENT. RATE HAS DECREASED BY [address] NOW DEPRESSED IN INFERIOR LEADS T WAVE INVERSION NOW EVIDENT IN INFERIOR LEADS NONSPECIFIC T WAVE ABNORMALITY NOW EVIDENT IN LATERAL LEADS Confirmed by Geovanny Brown MD ([id number]) on 10/13/2019 9:06:21 AM Referred By: Confirmed By:Geovanny Brown MD
[2019-10-13 09:47] VITALS: BMI 21.3
[2019-10-13] MEDS ORDERED: ACETAMINOPHEN 325 MG TABLET (FP) PO ONE (11:23)
[2019-10-13] MEDS: ENOXAPARIN NA (PORCINE) 40 MG/0.4 ML DISP.SYRIN SQ SCH (11:47)
[2019-10-13] MEDS: AZITHROMYCIN 250 MG TABLET PO SCH (11:47)
[2019-10-13] MEDS ORDERED: FLU VACCINE QUAD 60 MCG/0.5 ML (MDV 19-20) IM ONE (12:00)
[2019-10-13] MEDS ORDERED: PNEUMOCOCCAL 23 VACCINE 0.5 ML VIAL IM ONE (13:00)
[2019-10-13] MEDS ORDERED: PT OWN MED DRAWER 7, Y5N ONE ×2 (13:10→17:19)
[2019-10-13 13:22] LABS: INR 1.09 (0.83-1.09); PROTHROMBIN TIME (PATIENT) 12.9 SEC (9.7-13.0)
--- NOTE | 2019-10-13 14:38 | ECHO ---
Version: 1 Name: OSVALDO DIXON Exam: Adult Echocardiogram Study Date: 10/13/2019, 1:54 PM Age: 59 Years MMode/2D Measurements & Calculations IVSd: 1.04 cm LVIDs: 2.8 cm LVIDd: 4.1 cm LVPWd: 1.14 cm LVOT diam: 2.04 cm Ao root diam: 3.1 cm LA dimension: 3.5 cm Doppler Measurements & Calculations MV E max bryon: 110.6 cm/sec Med E/e': 11.7 MV A max bryon: 48.4 cm/sec Med Peak E' Bryon: 9.5 cm/sec MV E/A: 2.29 Lat E/e': 14.5 Lat Peak E' Bryon: 7.6 cm/sec MR max P.8 mmHg Ao max P.2 mmHg Ao V2 max: 142.8 cm/sec Procedure A complete two-dimensional transthoracic echocardiogram was performed (2D, M-mode, Doppler and color flow Doppler). Left Ventricle The left ventricular size, thickness and function are normal. Ejection Fraction = 55%. Right Ventricle The right ventricle is normal in size and function. Atria Normal left and right atrial size and function. Mitral Valve There is mild mitral annular calcification. There is mild mitral regurgitation. Tricuspid Valve The tricuspid valve is normal in structure and function. Aortic Valve The aortic valve is not well visualized. No hemodynamically significant valvular aortic stenosis. No aortic regurgitation is present. Pulmonic Valve The pulmonic valve is not well visualized. Great Vessels The aortic root is normal size. Pericardium/Pleura There is no pericardial effusion. Summary Statements The left ventricular size, thickness and function are normal The right ventricle is normal in size and function. Kane Chong 10/13/2019, 2:37 PM Ordering Physician: LACIE PELAEZ Referring Physician: LACIE PELAEZ Performed By: Janine Zimmerman
--- NOTE | 2019-10-13 15:23 | PN ---
Physical Exam: SUBJECTIVE: Patient seen and examined at the bedside. Patient stated that he has trouble breathing and feels chest tightness over the last several days that has been alleviated with breathing treatments at this hospital. States he continues to have a productive cough of white sputum, some chest tightness, mild shortness of breath, myalgias. Endorses a headache. Denies abd pain, n/v/c/ d, fever, chills, numbness, tingling. OBJECTIVE: Vital Signs Period Temp Pulse Resp BP Sys/Armendariz Pulse Ox Last 24 Hr 97.8 F-99.1 F 83-112 15-26 112-146/65-85 94-100 GENERAL: The patient is awake, alert, and fully oriented, in mild acute distress. HEAD: Normal with no signs of trauma. EYES: PERRL, extraocular movements intact, sclera anicteric, conjunctiva clear. ENT: Oropharynx clear without exudates, moist mucous membranes. NECK: Trachea midline, full range of motion, supple. LUNGS: Breath sounds with bibasilar crackles and expiratory wheezes. No accessory muscle use. HEART: Regular rate and rhythm, S1, S2 without murmur, rub. ABDOMEN: Soft, nontender, nondistended, normoactive bowel sounds, no guarding, no rebound, no masses. EXTREMITIES: 2+ pulses, warm, well-perfused, no edema. NEUROLOGICAL: Cranial nerves II through XII grossly intact. 5/5 muscle strength upper and lower extremities, bilaterally. PSYCH: Normal mood, normal affect. SKIN: Warm, dry, normal turgor, no rashes or lesions noted. Laboratory Results - last 24 hr 10/13/19 10/13/19 10/13/19 01:18 01:18 01:18 WBC 8.0 RBC 4.91 Hgb 15.3 Hct 44.4 MCV 90.4 MCH 31.2 MCHC 34.5 RDW 13.8 Plt Count 168 MPV 7.6 Absolute Neuts (auto) 5.7 Neutrophils % 70.8 Lymphocytes % 16.2 D Monocytes % 12.7 H Eosinophils % 0.0 D Basophils % 0.3 Nucleated RBC % 0 PT with INR INR Sodium Potassium Chloride Carbon Dioxide Anion Gap BUN Creatinine Est GFR (CKD-EPI)AfAm Est GFR (CKD-EPI)NonAf Random Glucose Hemoglobin A1c % Calcium Phosphorus Magnesium Total Bilirubin AST ALT Alkaline Phosphatase Creatine Kinase 207 Creatine Kinase Index 1.0 CK-MB (CK-2) 2.2 Troponin I < 0.02 B-Natriuretic Peptide Total Protein Albumin TSH Free T4 Influenza A (Rapid) Negative Influenza B (Rapid) Negative 10/13/19 10/13/19 10/13/19 01:18 03:27 05:52 WBC 6.0 RBC 4.71 Hgb 14.6 Hct 42.6 MCV 90.5 MCH 31.1 MCHC 34.3 RDW 13.7 Plt Count 171 MPV 7.4 L Absolute Neuts (auto) 5.4 Neutrophils % 90.2 H Lymphocytes % 6.1 L D Monocytes % 3.5 L Eosinophils % 0.0 Basophils % 0.2 Nucleated RBC % 0 PT with INR INR Sodium 136 Potassium 3.9 Chloride 102 Carbon Dioxide 24 Anion Gap 11 BUN 17.1 Creatinine 0.8 Est GFR (CKD-EPI)AfAm 113.33 Est GFR (CKD-EPI)NonAf 97.78 Random Glucose 136 H Hemoglobin A1c % Calcium 9.3 Phosphorus Magnesium Total Bilirubin 0.6 AST 36 ALT 30 Alkaline Phosphatase 58 Creatine Kinase Creatine Kinase Index CK-MB (CK-2) Troponin I B-Natriuretic Peptide 174.7 H Total Protein 7.8 Albumin 4.2 TSH 0.30 L Free T4 Influenza A (Rapid) Influenza B (Rapid) 10/13/19 10/13/19 10/13/19 05:52 05:52 12:50 WBC RBC Hgb Hct MCV MCH MCHC RDW Plt Count MPV Absolute Neuts (auto) Neutrophils % Lymphocytes % Monocytes % Eosinophils % Basophils % Nucleated RBC % PT with INR 12.90 INR 1.09 Sodium 137 Potassium 4.1 Chloride 100 Carbon Dioxide 26 Anion Gap 11 BUN 20.4 H Creatinine 1.1 Est GFR (CKD-EPI)AfAm 84.71 Est GFR (CKD-EPI)NonAf 73.09 Random Glucose 243 H Hemoglobin A1c % 5.4 Calcium 9.1 Phosphorus 4.2 Magnesium 2.3 Total Bilirubin AST ALT Alkaline Phosphatase Creatine Kinase Creatine Kinase Index CK-MB (CK-2) Troponin I B-Natriuretic Peptide Total Protein Albumin TSH 0.25 L D Free T4 1.16 Influenza A (Rapid) Influenza B (Rapid) 10/13/19 12:50 WBC RBC Hgb Hct MCV MCH MCHC RDW Plt Count MPV Absolute Neuts (auto) Neutrophils % Lymphocytes % Monocytes % Eosinophils % Basophils % Nucleated RBC % PT with INR INR Sodium Potassium Chloride Carbon Dioxide Anion Gap BUN Creatinine Est GFR (CKD-EPI)AfAm Est GFR (CKD-EPI)NonAf Random Glucose Hemoglobin A1c % Calcium Phosphorus Magnesium Total Bilirubin AST ALT Alkaline Phosphatase Creatine Kinase Creatine Kinase Index CK-MB (CK-2) Troponin I < 0.02 B-Natriuretic Peptide Total Protein Albumin TSH Free T4 Influenza A (Rapid) Influenza B (Rapid) Active Medications Generic Name Dose Route Start Last Admin Trade Name Freq PRN Reason Stop Dose Admin Albuterol Sulfate 1 amp 10/13/19 03:25 Ventolin 0.083% Nebulizer Soln - NEB Q4H PRN Dyspnea Albuterol/Ipratropium 1 amp 10/13/19 08:00 10/13/19 11:20 Duoneb - NEB 1 amp RQID ODELL Administration Aspirin 81 mg 10/14/19 10:00 Asa - PO DAILY ODELL Atorvastatin Calcium 20 mg 10/13/19 22:00 Lipitor - PO HS ODELL Azithromycin 500 mg 10/13/19 10:00 10/13/19 11:47 Zithromax - PO 500 mg DAILY ODELL Administration Budesonide/Formoterol Fumarate 2 puff 10/13/19 10:00 Symbicort 80/4.5mcg - IH BID ODELL Enoxaparin Sodium 40 mg 10/13/19 10:00 10/13/19 11:47 Lovenox - SQ 40 mg DAILY ODELL Administration Lisinopril 5 mg 10/14/19 10:00 Prinivil PO DAILY ODELL Methylprednisolone Sodium Succinate 40 mg 10/13/19 03:45 10/13/19 11:47 Solu-Medrol - IVPUSH 40 mg Q6H-IV ODELL Administration Metoprolol Tartrate 25 mg 10/13/19 22:00 Lopressor - PO BID ODELL Nicotine 14 mg 10/14/19 10:00 Nicoderm Patch - TD DAILY [facility] ASSESSMENT/PLAN: Erik Lopez is a 52 year old male with a past medical history of HTN, HLD, paroxysmal afib (s/p cardioversion), 38 year pack year history who is admitted for COPD exacerbation secondary to viral illness. Acute COPD exacerbation 2/2 viral illness - pt reporting viral symptoms - influenza rapid test negative - CXR- no signs of acute infiltrate, hyper-inflated lungs, with increased interstitial markings significant for COPD - EKG showing sinus tachy w TWI's in III, aVF and V5-6, no previous EKG for comparison - negative trops x2 - maintain SaO2 88-92% - albuterol neb q4h prn - duoneb 1RQID odell - solumedrol IV 40 q8h - azithromycin 500mg for 3 days - started pt on symbicort, as pt denies being placed on inhalers as o/p - ordered pneumovax 13 given pt is 19-64 yrs of age with chronic illness (COPD exacerbations) - recommend flu shot when pt's acute copd exacerbation resolves - stressed smoking cessation to prevent further exacerbations Hyperglycemia - likely in setting of steroid adminstration - A1C 5.4 HTN - continue metoprolol, lisinopril HLD - continue simvastatin Hx of afib - cardiovertered in 2011 - CHADS-VASC 1 - aspiring 81mg daily Tobacco Abuse - stressed smoking cessation - nicotine patch while in hospital DVT ppx - Lovenox 40SQ daily FEN - no standing fluids - continue to monitor electrolytes and replete as necessary - Sodium controlled diet Dispo - continue to monitor on Med-surg Visit type - Emergency Visit Emergency Visit: Yes ED Registration Date: 10/13/19 Care time: The patient presented to the Emergency Department on the above date and was hospitalized for further evaluation of their emergent condition. - New Patient This patient is new to me today: Yes Date on this admission: 10/13/19 - Critical Care Critical Care patient: No
[2019-10-13] MEDS: BUDESONIDE/FORMETEROL FUMARATE 80/4.5 mcg INHALER IH SCH ×2 (16:29→21:56)
--- NOTE | 2019-10-13 17:33 | PN ---
Teaching Attending Note Name of Resident: Aguila Espinosa ATTENDING PHYSICIAN STATEMENT I saw and evaluated the patient. I reviewed the resident's note and discussed the case with the resident. I agree with the resident's findings and plan as documented with exceptions below. SUBJECTIVE: Patient seen and examined. breathing improved, still with cough and whitish sputum. Feels better. OBJECTIVE: Vital Signs Period Temp Pulse Resp BP Sys/Armendariz Pulse Ox Last 24 Hr 97.5 F-99.1 F 72-112 15-26 112-146/65-85 94-100 Intake & Output 10/10/19 10/11/19 10/12/19 10/13/19 23:59 23:59 23:59 23:59 Intake Total 300 Balance 300 Weight 132 lb General: sitting in bed, mild tachypnea, able to speak in full sentences Neck: soft, supple, no JVD Chest; bibasilar fine rales, expiratory wheezing Abdomen:Soft, NT, ND Extremities: no pedal edema Home Medications Medication Instructions Recorded Aspirin 81 mg PO DAILY 02/05/18 Lisinopril 5 mg PO DAILY 10/13/19 Metoprolol Tartrate 25 mg BID 10/13/19 Simvastatin 40 mg DAILY 10/13/19 Active Medications Albuterol Sulfate (Ventolin 0.083% Nebulizer Soln -) 1 amp NEB Q4H PRN PRN Reason: Dyspnea Albuterol/Ipratropium (Duoneb -) 1 amp NEB RQID [facility] Last Admin: 10/13/19 15:58 Dose: 1 amp Aspirin (Asa -) 81 mg PO DAILY [facility] Atorvastatin Calcium (Lipitor -) 20 mg PO HS [facility] Azithromycin (Zithromax -) 500 mg PO DAILY [facility] Last Admin: 10/13/19 11:47 Dose: 500 mg Budesonide/Formoterol Fumarate (Symbicort 80/4.5mcg -) 2 puff IH BID [facility] Last Admin: 10/13/19 16:29 Dose: Not Given Enoxaparin Sodium (Lovenox -) 40 mg SQ DAILY [facility] Last Admin: 10/13/19 11:47 Dose: 40 mg Lisinopril (Prinivil) 5 mg PO DAILY [facility] Methylprednisolone Sodium Succinate (Solu-Medrol -) 40 mg IVPUSH Q8H-IV [facility] Last Admin: 10/13/19 17:15 Dose: 40 mg Metoprolol Tartrate (Lopressor -) 25 mg PO BID ODELL Nicotine (Nicoderm Patch -) 14 mg TD DAILY [facility] Laboratory Results - last 24 hr 10/13/19 10/13/19 10/13/19 01:18 01:18 01:18 WBC 8.0 RBC 4.91 Hgb 15.3 Hct 44.4 MCV 90.4 MCH 31.2 MCHC 34.5 RDW 13.8 Plt Count 168 MPV 7.6 Absolute Neuts (auto) 5.7 Neutrophils % 70.8 Lymphocytes % 16.2 D Monocytes % 12.7 H Eosinophils % 0.0 D Basophils % 0.3 Nucleated RBC % 0 PT with INR INR Sodium Potassium Chloride Carbon Dioxide Anion Gap BUN Creatinine Est GFR (CKD-EPI)AfAm Est GFR (CKD-EPI)NonAf Random Glucose Hemoglobin A1c % Calcium Phosphorus Magnesium Total Bilirubin AST ALT Alkaline Phosphatase Creatine Kinase 207 Creatine Kinase Index 1.0 CK-MB (CK-2) 2.2 Troponin I < 0.02 B-Natriuretic Peptide Total Protein Albumin TSH Free T4 Influenza A (Rapid) Negative Influenza B (Rapid) Negative 10/13/19 10/13/19 10/13/19 01:18 03:27 05:52 WBC 6.0 RBC 4.71 Hgb 14.6 Hct 42.6 MCV 90.5 MCH 31.1 MCHC 34.3 RDW 13.7 Plt Count 171 MPV 7.4 L Absolute Neuts (auto) 5.4 Neutrophils % 90.2 H Lymphocytes % 6.1 L D Monocytes % 3.5 L Eosinophils % 0.0 Basophils % 0.2 Nucleated RBC % 0 PT with INR INR Sodium 136 Potassium 3.9 Chloride 102 Carbon Dioxide 24 Anion Gap 11 BUN 17.1 Creatinine 0.8 Est GFR (CKD-EPI)AfAm 113.33 Est GFR (CKD-EPI)NonAf 97.78 Random Glucose 136 H Hemoglobin A1c % Calcium 9.3 Phosphorus Magnesium Total Bilirubin 0.6 AST 36 ALT 30 Alkaline Phosphatase 58 Creatine Kinase Creatine Kinase Index CK-MB (CK-2) Troponin I B-Natriuretic Peptide 174.7 H Total Protein 7.8 Albumin 4.2 TSH 0.30 L Free T4 Influenza A (Rapid) Influenza B (Rapid) 10/13/19 10/13/19 10/13/19 05:52 05:52 12:50 WBC RBC Hgb Hct MCV MCH MCHC RDW Plt Count MPV Absolute Neuts (auto) Neutrophils % Lymphocytes % Monocytes % Eosinophils % Basophils % Nucleated RBC % PT with INR 12.90 INR 1.09 Sodium 137 Potassium 4.1 Chloride 100 Carbon Dioxide 26 Anion Gap 11 BUN 20.4 H Creatinine 1.1 Est GFR (CKD-EPI)AfAm 84.71 Est GFR (CKD-EPI)NonAf 73.09 Random Glucose 243 H Hemoglobin A1c % 5.4 Calcium 9.1 Phosphorus 4.2 Magnesium 2.3 Total Bilirubin AST ALT Alkaline Phosphatase Creatine Kinase Creatine Kinase Index CK-MB (CK-2) Troponin I B-Natriuretic Peptide Total Protein Albumin TSH 0.25 L D Free T4 1.16 Influenza A (Rapid) Influenza B (Rapid) 10/13/19 12:50 WBC RBC Hgb Hct MCV MCH MCHC RDW Plt Count MPV Absolute Neuts (auto) Neutrophils % Lymphocytes % Monocytes % Eosinophils % Basophils % Nucleated RBC % PT with INR INR Sodium Potassium Chloride Carbon Dioxide Anion Gap BUN Creatinine Est GFR (CKD-EPI)AfAm Est GFR (CKD-EPI)NonAf Random Glucose Hemoglobin A1c % Calcium Phosphorus Magnesium Total Bilirubin AST ALT Alkaline Phosphatase Creatine Kinase Creatine Kinase Index CK-MB (CK-2) Troponin I < 0.02 B-Natriuretic Peptide Total Protein Albumin TSH Free T4 Influenza A (Rapid) Influenza B (Rapid) 2D echo results noted ASSESSMENT AND PLAN: 59 yom with PMHx, of atrial fibrillation s/p cardioversion in 2011, on ASA (off coumadin), active smoker, suspected undiagnosed COPD, HTN, HLD, admitted with 3 days of URI like symptoms, cough with whitish sputum and dyspnea. -Acute COPD exacerbation -Suspected acute viral illness/Acute bronchitis -Atrial fibrillation s/p cardioversion (in 2011) on ASA (off coumadin) -Nicotine dependence -HTN -HLD Plan: Slow steroid taper, standing and prn nebs. Azithromycin x 3 days. Smoking cessation counseling Discussed with patient and for outpatient pulmonary follow up. Continue ASA/statin/lisinopril/metoprolol. Nicotine patch DVTPPX lovenox Dispo d/c in 24 -48 hours on po steroids as continues to improve. Will need home oxygen needs assessment prior to dc Plan discussed with patient and at bedside in detail, all questions answered.
[2019-10-13 21:31] LABS: EPI CELLS 0.8 /HPF (0-5/HPF); HYALINE CASTS 1 /lpf (0-8); PH,URINE 5.5 (5.0-8.0); URINE APPEARANCE CLEAR; URINE BACTERIA 1.7 /hpf (NEGATIVE); URINE BILIRUBIN NEGATIVE (NEGATIVE); URINE COLOR YELLOW; URINE GLUCOSE (UA) 1+ (NEGATIVE); URINE KETONE NEGATIVE (NEGATIVE); URINE LEUK ESTERASE NEGATIVE (NEGATIVE); URINE NITRITE NEGATIVE (NEGATIVE); URINE PROTEIN 1+ (NEGATIVE); URINE RBC 3 /hpf (0-4); URINE WBC 0 /hpf (0-5)
[2019-10-13] MEDS: METOPROLOL TARTRATE 25 MG TABLET (FP) PO SCH (21:55)
[2019-10-13] MEDS ORDERED: ATORVASTATIN CA 20 MG TABLET (FP) PO SCH (22:00)
[2019-10-14] MEDS: ALBUTEROL SO4 0.083% IH SOL 2.5 MG/3 ML VIAL.NEB. NEB PRN ×2 (01:15→07:04)
[2019-10-14] MEDS: methylPREDNISolone NA SUCC 40 MG/1 ML VIAL IVPUSH SCH (01:47)
[2019-10-14] MEDS: ALBUTEROL SO4 2.5/IPRATROPIUM 0.5 INH SOL 3 ML VIAL.NEB. NEB SCH ×3 (07:05→15:49)
[2019-10-14 09:00] LABS: HEMATOCRIT 45.1 % (35.4-49); HEMOGLOBIN 15.6 GM/dL (11.7-16.9); MCH 31.4 pg (25.7-33.7); MCHC 34.6 g/dl (32.0-35.9); MEAN CELL VOLUME 90.8 fl (80-96); MEAN PLT VOLUME 7.8 fl (7.5-11.1); PLATELET COUNT 206 K/MM3 (134-434); RBC 4.97 M/mm3 (4.00-5.60); RDW 13.8 % (11.9-15.9)
[2019-10-14 09:38] LABS: BLOOD UREA NITROGEN 24.1 mg/dL (7-18); CALCIUM 9.4 mg/dL (8.5-10.1); CREATININE 0.8 mg/dL (0.55-1.3)
[2019-10-14] MEDS ORDERED: SODIUM CHLORIDE NASAL SPRAY 44 ML BOTTLE NS PRN (09:54)
[2019-10-14] MEDS ORDERED: NICOTINE 14 MG/24 HOURS TOPICAL PATCH TD SCH (10:00)
[2019-10-14] MEDS ORDERED: LISINOPRIL 5 MG TABLET (FP) PO SCH (10:00)
[2019-10-14] MEDS ORDERED: ASPIRIN 81 MG CHEWABLE TABLETS PO SCH (10:00)
[2019-10-14] MEDS ORDERED: predniSONE 20 MG TABLET (UD) PO ONE (10:00)
[2019-10-14] MEDS: METOPROLOL TARTRATE 25 MG TABLET (FP) PO SCH (11:40)
[2019-10-14] MEDS: AZITHROMYCIN 250 MG TABLET PO SCH (11:40)
[2019-10-14] MEDS: ENOXAPARIN NA (PORCINE) 40 MG/0.4 ML DISP.SYRIN SQ SCH (11:41)
[2019-10-14] MEDS: BUDESONIDE/FORMETEROL FUMARATE 80/4.5 mcg INHALER IH SCH (11:42)
[2019-10-14] MEDS ORDERED: ACETAMINOPHEN 500 MG TABLET (FP) PO PRN (13:06)
--- NOTE | 2019-10-14 14:50 | DS ---
Physical Exam: SUBJECTIVE: Patient seen and examined at the bedside. Patient stated that he was doing better, had improved breathing. Endorsed some abdominal pain from coughing. Continued to endorse a cough without sputum or blood. Denied cp, n/v/c /d, fevers, chills, myalgias, dizziness, lightheadedness. OBJECTIVE: Vital Signs Period Temp Pulse Resp BP Sys/Armendariz Pulse Ox Last 24 Hr 97.5 F-98 F 72-93 18-20 117-137/61-91 94-97 PHYSICAL EXAM GENERAL: The patient is awake, alert, and fully oriented, in no acute distress. HEAD: Normal with no signs of trauma. EYES: PERRL, extraocular movements intact, sclera anicteric, conjunctiva clear. ENT: Oropharynx clear without exudates, moist mucous membranes. NECK: Trachea midline, full range of motion, supple. LUNGS: Breath sounds with bibasilar crackles and expiratory wheezes, improved from previous exam. No accessory muscle use. HEART: Regular rate and rhythm, S1, S2 without murmur, rub. ABDOMEN: Soft, nontender, nondistended, normoactive bowel sounds, no guarding, no rebound, no masses. EXTREMITIES: 2+ pulses, warm, well-perfused, no edema. NEUROLOGICAL: Cranial nerves II through XII grossly intact. 5/5 muscle strength upper and lower extremities, bilaterally. PSYCH: Normal mood, normal affect. SKIN: Warm, dry, normal turgor, no rashes or lesions noted. LABS Laboratory Results - last 24 hr 10/13/19 10/14/19 10/14/19 19:00 08:15 08:15 WBC 15.0 H RBC 4.97 Hgb 15.6 Hct 45.1 MCV 90.8 MCH 31.4 MCHC 34.6 RDW 13.8 Plt Count 206 D MPV 7.8 Sodium 137 Potassium 4.0 Chloride 103 Carbon Dioxide 25 Anion Gap 9 BUN 24.1 H Creatinine 0.8 Est GFR (CKD-EPI)AfAm 113.33 Est GFR (CKD-EPI)NonAf 97.78 Random Glucose 177 H Calcium 9.4 Magnesium 2.0 Urine Color Yellow Urine Appearance Clear Urine pH 5.5 Ur Specific [place] 1.020 Urine Protein 1+ H Urine Glucose (UA) 1+ H Urine Ketones Negative Urine Blood Negative Urine Nitrite Negative Urine Bilirubin Negative Urine Urobilinogen 1.0 Ur Leukocyte Esterase Negative Urine WBC (Auto) 0 Urine RBC (Auto) 3 Urine Casts (Auto) 1 U Epithel Cells (Auto) 0.8 Urine Bacteria (Auto) 1.7 HOSPITAL COURSE: Erik Lopez is a 52 year old male with a past medical history of HTN, HLD, paroxysmal afib (s/p cardioversion), 38 year pack year history who is admitted for COPD exacerbation secondary to viral illness. Patient was started on Duonebs , albuterol prn, azithromycin, solumedrol for COPD exacerbation. He was transitioned to prednisone orally and will complete a short course of oral steroid and complete antibiotics. Patient will be started on an inhaler for shortness of breath. Patient was advised to cease smoking and provided with resources. Patient was advised to receive flu and pneumonia vaccines. He is to see his primary care physician and prepress operator outpatient and to receive pulmonary function testing. During admission, patient had an EKG which showed sinus tachy w TWI's in III, aVF and V5-6. Echo was performed which showed normal LV function, size, thickness, normal RV size and function, EF: 55%. Patient was advised to see his clinician oncology outpatient for continued follow up. Patient was found to have decreased TSH levels during admission and normal free T4. Patient is advised to follow up with his primary care physician for repeat bloodwork. Patient is to see his primary care physician, clinician oncology, and prepress operator. Patient was advised on smoking cessation. Patient was advised of the plan, was in agreement, and reiterated the plan. Patient was discharged in stable medical condition. Date of Admission:10/13/19 Date of Discharge: 10/14/19 Minutes to complete discharge: 35 Discharge Summary Problems reviewed: Yes Reason For Visit: ACUTE EXACERBATION OF CHRONIC OBSTRUCTIVE Condition: Improved - Instructions Diet, Activity, Other Instructions: You were admitted for worsening of your chronic obstructive pulmonary disease due to having a viral respiratory infection. You were treated with oxygen, medications to open up your airways, steroid medications, and antibiotics. You received a flu shot. We recommend that you have a pneumonia shot when you go follow up with your primary care doctor. While you were here, you had an EKG ( electrical diagram of the heart) which showed some abnormalities. You had an echocardiogram (ultrasound of the heart) which showed normal size, function, and thickness of your heart. You should follow up with your primary care doctor and your clinician oncology. While you were here, it was found that your thyroid tests were low. You will need to follow up with your primary care doctor for your thyroid testing. MEDICATIONS START taking Prednisone 40mg once daily for 4 more days. Take 2 20mg pills daily for 4 days. START taking Azithromycin 500mg once for 1 more day. START taking [place] Nasal [place] 1 spray in each nostril as needed twice a day. START taking albuterol inhaler 1-2 puffs as needed up to four times per day. Continue taking all of your other home medications as prescribed. REFERRALS Please follow up with your primary care doctor, Dr. Sneed, within 1 week. Please follow up with the prepress operator (lung doctor), Dr. Anton Miguel, within 1 week. Please follow up with your clinician oncology, Dr. Tommy Oh, within 1 week. SPECIAL INSTRUCTIONS It is important that you stop smoking to prevent any further lung problems. Stopping smoking now will greatly decrease your chances of developing worse lung , heart, kidney, bladder, brain issues. You will need to follow up with the prepress operator for pulmonary function testing to assess any underlying lung disease. You will need to follow up with your primary care doctor. You will need repeat thyroid function tests as an outpatient. If you have any symptoms of chest pain, shortness of breath, heart racing, fevers, unremitting cough, or any other general feelings of unwellness please call 911 or go to your nearest emergency room. Referrals: Anton Miguel MD [Staff Physician] - 1 Week Jonathan Sneed MD [Primary Care Provider] - 1 Week Tommy Oh MD [Staff Physician] - 1 Week Disposition: HOME - Home Medications Comprehensive Discharge Medication List: Ambulatory Orders Aspirin 81 mg PO DAILY 02/05/18 Lisinopril 5 mg PO DAILY 10/13/19 Metoprolol Tartrate 25 mg BID 10/13/19 Simvastatin 40 mg DAILY 10/13/19 Albuterol Sulfate Inhaler - [Ventolin HFA Inhaler -] 1 - 2 inh PO QID PRN #1 inhaler 10/14/19 Azithromycin [Zithromax] 500 mg PO DAILY #1 tablet 10/14/19 Sodium Chloride Nasal [place] [[place] Nasal [place] -] 2 spray NS BID PRN #44 ml 10/14/19 predniSONE [Deltasone -] 40 mg PO DAILY #8 tablet 10/14/19 Problem List - Problems (1) SOB (shortness of breath) Code(s): R06.02 - SHORTNESS OF BREATH This patient is new to me today: No Emergency Visit: Yes ED Registration Date: 10/13/19 Care time: The patient presented to the Emergency Department on the above date and was hospitalized for further evaluation of their emergent condition. Critical Care patient: No - Discharge Referral Referred to [facility] Yes Physician Referral: Jonathan Aleman MD ([facility])
[2019-10-14 16:04] VITALS: BP 122/68; PULSE 86; TEMP 86
--- NOTE | 2019-10-14 18:19 | PN ---
Teaching Attending Note Name of Resident: Aguila Espinosa ATTENDING PHYSICIAN STATEMENT I saw and evaluated the patient. I reviewed the resident's note and discussed the case with the resident. I agree with the resident's findings and plan as documented. SUBJECTIVE: Shortness of breath improving. Cough, white sputum, no hemoptysis. No CP/palps. No fever/chills. OBJECTIVE: Afebrile, Hemodynamically Stable. Last Vital Signs Temp Pulse Resp BP Pulse Ox 86 F L 86 20 122/68 97 10/14/19 14:00 10/14/19 14:00 10/14/19 14:00 10/14/19 14:00 10/14/19 10:00 General - appears comfortable, not in distress. SpO2 97% RA Heart - S1, S2, RRR Lungs - clear to auscultation Abdomen -Soft, non-tender. Bowel Sounds normal. Extremities - no edema, no calf tenderness. Laboratory Results - last 24 hr 10/13/19 10/14/19 10/14/19 19:00 08:15 08:15 WBC 15.0 H RBC 4.97 Hgb 15.6 Hct 45.1 MCV 90.8 MCH 31.4 MCHC 34.6 RDW 13.8 Plt Count 206 D MPV 7.8 Sodium 137 Potassium 4.0 Chloride 103 Carbon Dioxide 25 Anion Gap 9 BUN 24.1 H Creatinine 0.8 Est GFR (CKD-EPI)AfAm 113.33 Est GFR (CKD-EPI)NonAf 97.78 Random Glucose 177 H Calcium 9.4 Magnesium 2.0 Urine Color Yellow Urine Appearance Clear Urine pH 5.5 Ur Specific [place] 1.020 Urine Protein 1+ H Urine Glucose (UA) 1+ H Urine Ketones Negative Urine Blood Negative Urine Nitrite Negative Urine Bilirubin Negative Urine Urobilinogen 1.0 Ur Leukocyte Esterase Negative Urine WBC (Auto) 0 Urine RBC (Auto) 3 Urine Casts (Auto) 1 U Epithel Cells (Auto) 0.8 Urine Bacteria (Auto) 1.7 Discharge Medications Medication Instructions Recorded Aspirin 81 mg PO DAILY 02/05/18 Lisinopril 5 mg PO DAILY 10/13/19 Metoprolol Tartrate 25 mg BID 10/13/19 Simvastatin 40 mg DAILY 10/13/19 Albuterol Sulfate Inhaler - 1 - 2 inh PO QID PRN #1 inhaler 12/11/19 [Ventolin HFA Inhaler -] Azithromycin [Zithromax] 500 mg PO DAILY #1 tablet 10/14/19 Sodium Chloride Nasal [place] [[place] 2 spray NS BID PRN #44 ml 10/14/19 [place] Nasal [place] -] predniSONE [Deltasone -] 40 mg PO DAILY #8 tablet 10/14/19 ASSESSMENT AND PLAN: 59 year old male with history of atrial fibrillation s/p cardioversion in 2011, on ASA (off coumadin), active smoker, suspected undiagnosed COPD, HTN, HLD, admitted with 3 days of URI like symptoms, cough with whitish sputum and dyspnea. 1. Acute Exacerbation COPD Improving with Steroids, Bronchodilator Nebs Abx. Saturbating 98% on Room Air. Flu negative. Medically stable for discharge on Prednisone course, Bronchodilator inhaler, and Azithromycin to complete 3 day course (500mg daily) 2. Leukocytosis sec to Steroids - no signs of infection CXR - normal. 3. Atrial Fibrillation s/p Cardioversion - on ASA 4. HTN - Continue Lisinopril, Metoprolol. 5. HLD - Continue Statin. 6. Tobacco User - Counselled regarding smoking cessation. Verbalized understanding. Offered Nicotine patches. 7. Low TSH, normal free t4 - patient advised to attend PCP for repeat LFTs in 4- 6 weeks.
== END 2019-10-14 18:00 | disposition home or self-care (01) | DRG 192 ==
LOC: JER 00:48 → JERBED 02:55 → J8W 09:04
PROVIDERS: ADMIT Internal Medicine
DX: J44.0 Chronic obstructive pulmonary disease with (acute) lower respiratory infection (principal); I10 Essential (primary) hypertension; I48.0 Paroxysmal atrial fibrillation; J20.9 Acute bronchitis, unspecified; E78.5 Hyperlipidemia, unspecified; R73.9 Hyperglycemia, unspecified; R00.0 Tachycardia, unspecified; F17.210 Nicotine dependence, cigarettes, uncomplicated; D72.829 Elevated white blood cell count, unspecified
CPT/HCPCS: 36415; 71045-TC-FY; 80048; 80053; 81003; 82550; 82553; 83036; 83735; 83880; 84100; 84439; 84443; 84484; 85025; 85027; 85610; 87804; 93005; 93010; 93306-TC; 94640; 94761; 99285-25; G0008; Q2036

== ENCOUNTER 2021-02-21 12:26 | Emergency (ER) | payer BC ==
[2021-02-21 12:42] VITALS: BP 160/99; PULSE 97; TEMP 98.6; BMI 23.3
[2021-02-21] MEDS ORDERED: KETOROLAC TROMETHAMINE 30 MG/1 ML VIAL IM ONE (13:05)
[2021-02-21] MEDS ORDERED: KETOROLAC TROMETHAMINE 30 MG/1 ML VIAL ONE (13:06)
== END 2021-02-21 13:49 | disposition home or self-care (01) ==
LOC: JERFT 12:26
PROC: 3E0233Z Introduction of Anti-inflammatory into Muscle, Percutaneous Approach (ICD-10-PCS; principal; 2021-02-21)
DX: M54.5 Low back pain (principal)
CPT/HCPCS: 99284-25

== ENCOUNTER 2021-03-17 04:08 | Day surgery (SDC) | payer BC ==
[2021-03-14 12:09] VITALS: BMI 23.3
[2021-03-17 10:22] VITALS: TEMP 98.4
[2021-03-17] MEDS ORDERED: LIDOCAINE HCL 1% PRESERVATIVE FREE - 30ML VIAL IJ ONE (11:18)
[2021-03-17] MEDS ORDERED: BUPIVACAINE HCL/PF 0.75% 10 ML VIAL NR ONE (11:19)
[2021-03-17 11:53] VITALS: BP 143/92; PULSE 83
== END 2021-03-17 12:05 | disposition home or self-care (01) ==
LOC: JASU-SURG 04:08
PROVIDERS: ATTEND Pain Medicine Pain Medicine
PROC: BR16YZZ Fluoroscopy of Lumbar Facet Joint(s) using Other Contrast (ICD-10-PCS; 2021-03-17)
PROC: 3E0T3BZ Introduction of Anesthetic Agent into Peripheral Nerves and Plexi, Percutaneous Approach (ICD-10-PCS; principal; 2021-03-17 11:30)
DX: M47.816 Spondylosis without myelopathy or radiculopathy, lumbar region (principal)
CPT/HCPCS: 76000-TC-FY

== ENCOUNTER 2021-04-14 04:11 | Day surgery (SDC) | payer BC ==
[2021-04-13 08:56] VITALS: BMI 23.3
[2021-04-14] MEDS ORDERED: LIDOCAINE HCL/PF 1% SDV 5ML VIAL ONE (07:16)
[2021-04-14] MEDS ORDERED: DEXAMETHASONE SOD PHOSPHATE 10 MG/1 ML VIAL ONE (07:16)
[2021-04-14] MEDS ORDERED: IOHEXOL 180 MG/1 ML ML IJ ONE ×3 (07:55→08:09)
[2021-04-14] MEDS ORDERED: DEXAMETHASONE SOD PHOSPHATE 10 MG/1 ML VIAL IVPUSH ONE ×2 (07:55→08:10)
[2021-04-14] MEDS ORDERED: LIDOCAINE HCL 1% PRESERVATIVE FREE - 30ML VIAL IJ ONE ×3 (07:57→08:15)
[2021-04-14 08:35] VITALS: BP 140/96; PULSE 80; TEMP 96.8
== END 2021-04-14 08:38 | disposition home or self-care (01) ==
LOC: JASU-SURG 04:11
PROVIDERS: ATTEND Pain Medicine Pain Medicine
PROC: 3E0R3BZ Introduction of Anesthetic Agent into Spinal Canal, Percutaneous Approach (ICD-10-PCS; 2021-04-14)
PROC: B01BYZZ Fluoroscopy of Spinal Cord using Other Contrast (ICD-10-PCS; 2021-04-14)
PROC: 3E0R33Z Introduction of Anti-inflammatory into Spinal Canal, Percutaneous Approach (ICD-10-PCS; principal; 2021-04-14 08:00)
DX: M54.16 Radiculopathy, lumbar region (principal)
CPT/HCPCS: 76000-TC-FY; J1100

== ENCOUNTER 2021-04-25 09:56 | Emergency (ER) | payer BC ==
[2021-04-25 10:25] VITALS: BMI 20.9
[2021-04-25] MEDS ORDERED: SODIUM CHLORIDE 1,000 ML IV STA (11:30)
[2021-04-25] MEDS ORDERED: ACETAMINOPHEN 1000 MG/100 ML VIAL (NON FORMULARY) IVPB ONE (11:30)
[2021-04-25] MEDS ORDERED: ACETAMINOPHEN INJECTION 100 ML IVPB ONE (11:54)
[2021-04-25 12:14] LABS: BASO % 0.8 % (0-2.0); EOS % 0.8 % (0-4.5); HEMATOCRIT 47.3 % (35.4-49); HEMOGLOBIN 16.2 GM/dL (11.7-16.9); LYMPH % 27.2 % (8-40); MCH 30.6 pg (25.7-33.7); MCHC 34.2 g/dl (32.0-35.9); MEAN CELL VOLUME 89.6 fl (80-96); MEAN PLT VOLUME 6.9 fl (7.5-11.1); MONO % 7.7 % (3.8-10.2); NEUT % 63.5 % (42.8-82.8); PLATELET COUNT 242 10^3/uL (134-434); RBC 5.28 M/mm3 (4.00-5.60); RDW 13.5 % (11.9-15.9); WHITE BLOOD COUNT 7.9 K/mm3 (4.0-10.0)
[2021-04-25 12:16] LABS: INR 0.95 (0.83-1.09); PROTHROMBIN TIME (PATIENT) 11.5 SEC (9.7-13.0)
[2021-04-25 12:36] LABS: ALBUMIN 4.1 g/dl (3.4-5.0); BLOOD UREA NITROGEN 13.7 mg/dL (7-18); CALCIUM 9.4 mg/dL (8.5-10.1)
[2021-04-25 12:37] LABS: EPI CELLS 4 /uL (0-25.1); HYALINE CASTS 1 /uL (0-3.1); PH,URINE 6.5 (5.0-8.0); URINE APPEARANCE CLEAR; URINE BACTERIA 1 /uL (0-1359); URINE BILIRUBIN NEGATIVE (NEGATIVE); URINE COLOR DK YELLOW; URINE GLUCOSE (UA) NEGATIVE (NEGATIVE); URINE KETONE TRACE (NEGATIVE); URINE LEUK ESTERASE NEGATIVE (NEGATIVE); URINE NITRITE NEGATIVE (NEGATIVE); URINE PROTEIN 1+ (NEGATIVE); URINE RBC 6 /uL (0-23.9); URINE WBC 3 /uL (0-25.8)
[2021-04-25 12:39] LABS: CREATININE 0.7 mg/dL (0.55-1.3)
[2021-04-25 12:41] LABS: BILIRUBIN,TOTAL 0.6 mg/dL (0.2-1); TOT PROT 7.6 g/dl (6.4-8.2)
[2021-04-25] MEDS ORDERED: KETOROLAC TROMETHAMINE 60 MG/2 ML VIAL IM ONE (14:52)
[2021-04-25] MEDS ORDERED: KETOROLAC TROMETHAMINE 15 MG/ML VIAL ONE (15:12)
[2021-04-25] MEDS ORDERED: morphine CARPU-JECT 4 MG/1 ML DISP.SYRIN IVPUSH ONE (17:28)
[2021-04-25 17:53] VITALS: BP 147/85; PULSE 92; TEMP 98.2
== END 2021-04-25 17:30 | disposition home or self-care (01) ==
LOC: JER 09:56
PROC: 3E0333Z Introduction of Anti-inflammatory into Peripheral Vein, Percutaneous Approach (ICD-10-PCS; principal; 2021-04-25)
PROC: 3E0233Z Introduction of Anti-inflammatory into Muscle, Percutaneous Approach (ICD-10-PCS; 2021-04-25)
PROC: 3E0337Z Introduction of Electrolytic and Water Balance Substance into Peripheral Vein, Percutaneous Approach (ICD-10-PCS; 2021-04-25)
DX: R10.9 Unspecified abdominal pain (principal)
CPT/HCPCS: 36415; 74176-TC; 74177-TC; 80053; 81003; 85025; 85610; 87086; 99285-25; J0131; Q9967

== ENCOUNTER 2021-08-14 04:41 | Day surgery (SDC) | payer BC ==
[2021-08-11 13:44] VITALS: BMI 21.7
[2021-08-14 10:07] LABS: BASO % 1.9 % (0-2.0); EOS % 1.2 % (0-4.5); HEMATOCRIT 46.4 % (35.4-49); HEMOGLOBIN 16.2 GM/dL (11.7-16.9); LYMPH % 31.6 % (8-40); MCH 31.2 pg (25.7-33.7); MCHC 34.9 g/dl (32.0-35.9); MEAN CELL VOLUME 89.6 fl (80-96); MEAN PLT VOLUME 6.5 fl (7.5-11.1); MONO % 8.9 % (3.8-10.2); NEUT % 56.4 % (42.8-82.8); PLATELET COUNT 224 10^3/uL (134-434); RBC 5.18 M/mm3 (4.00-5.60); RDW 13.1 % (11.9-15.9); WHITE BLOOD COUNT 5.2 K/mm3 (4.0-10.0)
[2021-08-14 10:14] LABS: INR 0.92 (0.83-1.09); PROTHROMBIN TIME (PATIENT) 11.3 SEC (9.7-13.0)
[2021-08-14] MEDS ORDERED: ACETAMINOPHEN 325 MG TABLET (FP) ONE (12:24)
[2021-08-14 13:10] VITALS: BP 133/89; PULSE 80; TEMP 98.5
[2021-08-14] MEDS ORDERED: ACETAMINOPHEN 325 MG TABLET (FP) PO ONE (13:45)
[2021-08-14 16:11] LABS: BF WBC & OTHER NUCLEATED CELLS 68 /mm3
[2021-08-14 17:57] LABS: BODY FLUID MONOCYTE 22 %
== END 2021-08-14 12:40 | disposition home or self-care (01) ==
LOC: JRADIR 04:41
PROVIDERS: ATTEND Urology
PROC: BT21ZZZ Computerized Tomography (CT Scan) of Right Kidney (ICD-10-PCS; principal; 2021-08-14)
PROC: 0T903ZX Drainage of Right Kidney, Percutaneous Approach, Diagnostic (ICD-10-PCS; 2021-08-14)
DX: N28.1 Cyst of kidney, acquired (principal)
CPT/HCPCS: 36415; 50390; 82042; 82150; 82945; 83615; 83986; 84157; 84478; 85025; 85610; 87070; 87075; 87102; 87116; 87186; 87205; 87206; 87210; 88108

== ENCOUNTER 2022-08-08 19:22 | Inpatient (IN) | payer BC, OTHER ==
[2022-08-08] MEDS ORDERED: ALBUTEROL SO4 2.5/IPRATROPIUM 0.5 INH SOL 3 ML VIAL.NEB. NEB ONE (20:14)
[2022-08-08] MEDS ORDERED: methylPREDNISolone NA SUCC 125 MG/2 ML VIAL ONE (20:14)
[2022-08-08] MEDS ORDERED: methylPREDNISolone NA SUCC 125 MG/2 ML VIAL IVPUSH ONE (20:16)
[2022-08-08] MEDS ORDERED: ACETAMINOPHEN 1000 MG/100 ML BAG IVPB ONE (20:28)
[2022-08-08] MEDS: ALBUTEROL SO4 2.5/IPRATROPIUM 0.5 INH SOL 3 ML VIAL.NEB. NEB SCH ×3 (20:30→21:00)
[2022-08-08] MEDS ORDERED: ACETAMINOPHEN INJECTION 100 ML IVPB ONE (20:32)
[2022-08-08 20:36] LABS: BASO % 1.2 % (0-2.0); EOS % 1.9 % (0-4.5); HEMATOCRIT 47.9 % (35.4-49); HEMOGLOBIN 16.6 GM/dL (11.7-16.9); LYMPH % 34.9 % (8-40); MCH 29.7 pg (25.7-33.7); MCHC 34.7 g/dl (32.0-35.9); MEAN CELL VOLUME 85.6 fl (80-96); MEAN PLT VOLUME 6.6 fl (7.5-11.1); MONO % 8.2 % (3.8-10.2); NEUT % 53.8 % (42.8-82.8); PLATELET COUNT 253 10^3/uL (134-434); RDW 14.2 % (11.9-15.9); WHITE BLOOD COUNT 8.7 K/mm3 (4.0-10.0)
[2022-08-08 20:43] LABS: INR 0.98 (0.83-1.09); PROTHROMBIN TIME (PATIENT) 11.3 SEC (9.7-13.0)
[2022-08-08 20:55] LABS: ALBUMIN 4.2 g/dl (3.4-5.0); BLOOD UREA NITROGEN 14.2 mg/dL (7-18); CALCIUM 9.7 mg/dL (8.5-10.1); MAGNESIUM 2.1 mg/dL (1.8-2.4)
[2022-08-08 20:58] LABS: CREATININE 0.7 mg/dL (0.55-1.3)
[2022-08-08 21:00] LABS: BILIRUBIN,TOTAL 0.4 mg/dL (0.2-1); TOT PROT 7.6 g/dl (6.4-8.2)
[2022-08-08] MEDS ORDERED: CEFTRIAXONE 1,000 MG in DEXTROSE 5%-WATER - 50 ML IVPB ONE (21:11)
[2022-08-08] MEDS ORDERED: ALBUTEROL SO4 0.083% IH SOL 2.5 MG/3 ML VIAL.NEB. NEB ONE ×2 (21:16→21:23)
[2022-08-08] MEDS ORDERED: CEFTRIAXONE 1 GM/50 ML BAG ONE (21:18)
[2022-08-09] MEDS ORDERED: ALBUTEROL SO4 2.5/IPRATROPIUM 0.5 INH SOL 3 ML VIAL.NEB. NEB PRN (00:08)
[2022-08-09 02:03] VITALS: BMI 22.3
[2022-08-09] MEDS: methylPREDNISolone NA SUCC 40 MG/1 ML VIAL IVPUSH SCH ×3 (02:14→17:17)
[2022-08-09 08:54] LABS: HEMATOCRIT 45.2 % (35.4-49); HEMOGLOBIN 15.6 GM/dL (11.7-16.9); MCH 29.7 pg (25.7-33.7); MCHC 34.6 g/dl (32.0-35.9); MEAN CELL VOLUME 85.9 fl (80-96); MEAN PLT VOLUME 6.8 fl (7.5-11.1); PLATELET COUNT 240 10^3/uL (134-434); RBC 5.26 M/mm3 (4.00-5.60); RDW 14.2 % (11.9-15.9); WHITE BLOOD COUNT 6.4 K/mm3 (4.0-10.0)
[2022-08-09] MEDS ORDERED: ACETAMINOPHEN 325 MG TABLET (FP) PO PRN (09:07)
[2022-08-09 09:18] LABS: ALBUMIN 3.8 g/dl (3.4-5.0); CALCIUM 9.9 mg/dL (8.5-10.1); MAGNESIUM 1.8 mg/dL (1.8-2.4)
[2022-08-09 09:19] LABS: BLOOD UREA NITROGEN 14.6 mg/dL (7-18)
[2022-08-09 09:21] LABS: BILIRUBIN,TOTAL 0.5 mg/dL (0.2-1); CREATININE 0.8 mg/dL (0.55-1.3); TOT PROT 7.2 g/dl (6.4-8.2)
[2022-08-09] MEDS: DOCUSATE SODIUM 100 MG CAPSULE (FP) PO SCH (09:56)
[2022-08-09] MEDS: AZITHROMYCIN IVPB 500 MG/250 ML BAG IVPB SCH (11:27)
[2022-08-09] MEDS ORDERED: ALBUTEROL SO4 0.083% IH SOL 2.5 MG/3 ML VIAL.NEB. NEB PRN (11:33)
[2022-08-09] MEDS: ALBUTEROL SO4 2.5/IPRATROPIUM 0.5 INH SOL 3 ML VIAL.NEB. NEB SCH ×3 (12:00→20:09)
[2022-08-09] MEDS: BUDESONIDE/FORMETEROL FUMARATE 160/4.5 mcg INHALER IH SCH ×2 (12:27→21:37)
[2022-08-09] MEDS: guaiFENesin 600 MG TABLET.ER (FP) PO SCH ×2 (12:27→21:37)
[2022-08-09] MEDS: oxyCODONE HCL 5 MG TABLET PO PRN ×2 (12:59→20:19)
[2022-08-09] MEDS: KETOROLAC TROMETHAMINE 15 MG/ML VIAL IVPUSH PRN (17:18)
[2022-08-09] MEDS: MONTELUKAST NA 5 MG TAB.CHEW PO SCH (21:37)
[2022-08-09] MEDS: METOPROLOL TARTRATE 25 MG TABLET (FP) PO SCH (21:37)
[2022-08-10] MEDS: methylPREDNISolone NA SUCC 40 MG/1 ML VIAL IVPUSH SCH ×3 (02:23→17:05)
[2022-08-10] MEDS: oxyCODONE HCL 5 MG TABLET PO PRN (06:53)
[2022-08-10] MEDS: ALBUTEROL SO4 2.5/IPRATROPIUM 0.5 INH SOL 3 ML VIAL.NEB. NEB SCH ×4 (07:32→20:05)
[2022-08-10 08:55] LABS: HEMATOCRIT 44.2 % (35.4-49); HEMOGLOBIN 14.9 GM/dL (11.7-16.9); MCH 29.1 pg (25.7-33.7); MCHC 33.7 g/dl (32.0-35.9); MEAN CELL VOLUME 86.4 fl (80-96); MEAN PLT VOLUME 7.2 fl (7.5-11.1); PLATELET COUNT 263 10^3/uL (134-434); RBC 5.12 M/mm3 (4.00-5.60); RDW 14.5 % (11.9-15.9); WHITE BLOOD COUNT 16.4 K/mm3 (4.0-10.0)
[2022-08-10 09:31] LABS: CALCIUM 9.4 mg/dL (8.5-10.1)
[2022-08-10 09:33] LABS: ALBUMIN 3.7 g/dl (3.4-5.0); BLOOD UREA NITROGEN 22.6 mg/dL (7-18); MAGNESIUM 2.1 mg/dL (1.8-2.4)
[2022-08-10 09:36] LABS: BILIRUBIN,TOTAL 0.5 mg/dL (0.2-1); CREATININE 0.8 mg/dL (0.55-1.3); PHOSPHOROUS 3.2 mg/dL (2.5-4.9)
[2022-08-10 09:37] LABS: TOT PROT 6.9 g/dl (6.4-8.2)
[2022-08-10 09:49] LABS: ANISOCYTOSIS 0; HELMET CELLS 0; HOWELL-JOLLY BODIES 0; MACROCYTOSIS 0; OVALOCYTE 0; ROULEAU 0; SICKELED CELLS 0; TARGET CELLS 0; TEAR DROP CELLS 0; TOXIC GRANULATION 0
[2022-08-10] MEDS: AZITHROMYCIN IVPB 500 MG/250 ML BAG IVPB SCH (10:00)
[2022-08-10] MEDS: ACETAMINOPHEN 325 MG TABLET (FP) PO SCH ×2 (11:15→17:04)
[2022-08-10] MEDS: oxyCODONE HCL 5 MG TABLET PO SCH ×4 (11:16→23:59)
[2022-08-10] MEDS: METOPROLOL TARTRATE 25 MG TABLET (FP) PO SCH ×2 (11:17→21:38)
[2022-08-10] MEDS: DOCUSATE SODIUM 100 MG CAPSULE (FP) PO SCH (11:24)
[2022-08-10] MEDS: guaiFENesin 600 MG TABLET.ER (FP) PO SCH ×2 (11:24→21:38)
[2022-08-10] MEDS: BUDESONIDE/FORMETEROL FUMARATE 160/4.5 mcg INHALER IH SCH ×2 (13:25→21:38)
[2022-08-10] MEDS ORDERED: REMDESIVIR 100 MG in SODIUM CHLORIDE 250 ML IVPB SCH (13:45)
[2022-08-10] MEDS ORDERED: INSULIN (NOVOLOG) ASPART 100 UNITS/ML 10ML VIAL ONE (21:15)
[2022-08-10] MEDS: MONTELUKAST NA 5 MG TAB.CHEW PO SCH (21:38)
[2022-08-10] MEDS: INSULIN SLIDING SCALE (NOVOLOG) 1 VIAL SQ SCH (21:43)
[2022-08-11] MEDS: methylPREDNISolone NA SUCC 40 MG/1 ML VIAL IVPUSH SCH ×3 (01:06→18:12)
[2022-08-11] MEDS: ACETAMINOPHEN 325 MG TABLET (FP) PO SCH ×5 (05:51→23:22)
[2022-08-11] MEDS: oxyCODONE HCL 5 MG TABLET PO SCH ×4 (05:52→23:22)
[2022-08-11] MEDS: INSULIN SLIDING SCALE (NOVOLOG) 1 VIAL SQ SCH ×4 (06:03→22:08)
[2022-08-11] MEDS: ALBUTEROL SO4 2.5/IPRATROPIUM 0.5 INH SOL 3 ML VIAL.NEB. NEB SCH ×4 (07:33→20:44)
[2022-08-11 09:08] LABS: BASO % 0.3 % (0-2.0); HEMATOCRIT 44.9 % (35.4-49); HEMOGLOBIN 14.9 GM/dL (11.7-16.9); LYMPH % 18.3 % (8-40); MCH 28.9 pg (25.7-33.7); MCHC 33.1 g/dl (32.0-35.9); MEAN CELL VOLUME 87.3 fl (80-96); MEAN PLT VOLUME 7.3 fl (7.5-11.1); MONO % 6.2 % (3.8-10.2); NEUT % 75.2 % (42.8-82.8); PLATELET COUNT 232 10^3/uL (134-434); RBC 5.14 M/mm3 (4.00-5.60); RDW 14.7 % (11.9-15.9); WHITE BLOOD COUNT 11.9 K/mm3 (4.0-10.0)
[2022-08-11 09:26] LABS: ALBUMIN 3.8 g/dl (3.4-5.0); BLOOD UREA NITROGEN 20.2 mg/dL (7-18); MAGNESIUM 2.3 mg/dL (1.8-2.4)
[2022-08-11 09:29] LABS: PHOSPHOROUS 2.9 mg/dL (2.5-4.9)
[2022-08-11 09:30] LABS: CREATININE 0.7 mg/dL (0.55-1.3)
[2022-08-11] MEDS: DOCUSATE SODIUM 100 MG CAPSULE (FP) PO SCH (09:30)
[2022-08-11 09:31] LABS: BILIRUBIN,TOTAL 0.7 mg/dL (0.2-1)
[2022-08-11] MEDS: guaiFENesin 600 MG TABLET.ER (FP) PO SCH ×2 (09:31→22:07)
[2022-08-11] MEDS: METOPROLOL TARTRATE 25 MG TABLET (FP) PO SCH ×2 (09:31→22:03)
[2022-08-11 09:32] LABS: TOT PROT 6.9 g/dl (6.4-8.2)
[2022-08-11] MEDS: AZITHROMYCIN IVPB 500 MG/250 ML BAG IVPB SCH (09:38)
[2022-08-11] MEDS: BUDESONIDE/FORMETEROL FUMARATE 160/4.5 mcg INHALER IH SCH ×2 (09:48→22:12)
[2022-08-11] MEDS: KETOROLAC TROMETHAMINE 15 MG/ML VIAL IVPUSH PRN (19:52)
[2022-08-11] MEDS: MONTELUKAST NA 5 MG TAB.CHEW PO SCH (22:12)
[2022-08-12] MEDS: methylPREDNISolone NA SUCC 40 MG/1 ML VIAL IVPUSH SCH ×2 (01:41→09:15)
[2022-08-12] MEDS: KETOROLAC TROMETHAMINE 15 MG/ML VIAL IVPUSH PRN (02:05)
[2022-08-12] MEDS: ACETAMINOPHEN 325 MG TABLET (FP) PO SCH (05:53)
[2022-08-12] MEDS: oxyCODONE HCL 5 MG TABLET PO SCH (05:53)
[2022-08-12 05:58] VITALS: BP 125/86; PULSE 73; RESP 17; TEMP 97.6
[2022-08-12] MEDS: INSULIN SLIDING SCALE (NOVOLOG) 1 VIAL SQ SCH ×2 (07:17→12:04)
[2022-08-12] MEDS: ALBUTEROL SO4 2.5/IPRATROPIUM 0.5 INH SOL 3 ML VIAL.NEB. NEB SCH ×2 (07:30→11:13)
[2022-08-12] MEDS: METOPROLOL TARTRATE 25 MG TABLET (FP) PO SCH (09:15)
[2022-08-12] MEDS: DOCUSATE SODIUM 100 MG CAPSULE (FP) PO SCH (09:15)
[2022-08-12] MEDS: guaiFENesin 600 MG TABLET.ER (FP) PO SCH (09:15)
[2022-08-13] MEDS ORDERED: predniSONE 20 MG TABLET (UD) PO SCH (10:00)
== END 2022-08-12 12:30 | disposition home or self-care (01) | DRG 192 ==
LOC: JER 19:22 → JERBED 21:12 → J6S 08-09 01:05
PROVIDERS: ADMIT Internal Medicine; ATTEND Internal Medicine
DX: J44.1 Chronic obstructive pulmonary disease with (acute) exacerbation (principal); I10 Essential (primary) hypertension; I48.0 Paroxysmal atrial fibrillation; D72.829 Elevated white blood cell count, unspecified; F17.210 Nicotine dependence, cigarettes, uncomplicated; E78.5 Hyperlipidemia, unspecified
CPT/HCPCS: 0241U-QW; 36415; 71045-TC-FY; 80053; 82550; 82962; 83735; 84100; 84484; 85025; 85027; 85610; 85730; 93005; 93010; 94640; 99291; 99292

== ENCOUNTER 2022-11-19 12:07 | Emergency (ER) | payer BC ==
[2022-11-19 12:31] VITALS: RESP 18; TEMP 98.2; BMI 23.3
[2022-11-19] MEDS ORDERED: ACETAMINOPHEN INJECTION 100 ML IVPB ONE (13:10)
[2022-11-19] MEDS ORDERED: ACETAMINOPHEN 1000 MG/100 ML BAG IVPB ONE (13:10)
[2022-11-19] MEDS ORDERED: morphine CARPU-JECT 2 MG/1 ML DISP.SYRIN IVPUSH ONE (13:10)
[2022-11-19] MEDS ORDERED: SODIUM CHLORIDE 0.9% 500 ML INFUS.BAG IV ONE (13:10)
[2022-11-19 13:24] LABS: BASO % 0.8 % (0-2.0); EOS % 1.5 % (0-4.5); HEMATOCRIT 42.6 % (35.4-49); LYMPH % 25.9 % (8-40); MCH 31.4 pg (25.7-33.7); MCHC 35.2 g/dl (32.0-35.9); MEAN PLT VOLUME 6.7 fl (7.5-11.1); MONO % 8.4 % (3.8-10.2); NEUT % 63.4 % (42.8-82.8); PLATELET COUNT 231 10^3/uL (134-434); RBC 4.79 M/mm3 (4.00-5.60); RDW 14.3 % (11.9-15.9); WHITE BLOOD COUNT 7.1 K/mm3 (4.0-10.0)
[2022-11-19 13:30] LABS: ACTIVATED PTT 32.7 SECONDS (25.2-36.5); INR 0.95 (0.83-1.09); PROTHROMBIN TIME (PATIENT) 10.9 SEC (9.7-13.0)
[2022-11-19] MEDS ORDERED: PANTOPRAZOLE SODIUM 40 MG VIAL IVPUSH ONE (13:36)
[2022-11-19] MEDS ORDERED: PANTOPRAZOLE SODIUM 40 MG VIAL ONE (13:40)
[2022-11-19] MEDS ORDERED: morphine SULFATE 4 MG/ML VIAL ONE (13:40)
[2022-11-19] MEDS ORDERED: morphine CARPU-JECT 4 MG/1 ML DISP.SYRIN IVPUSH ONE (13:41)
[2022-11-19 13:46] LABS: CALCIUM 9.3 mg/dL (8.5-10.1)
[2022-11-19 13:47] LABS: ALBUMIN 4.2 g/dl (3.4-5.0); BLOOD UREA NITROGEN 16.6 mg/dL (7-18)
[2022-11-19 13:51] LABS: TOT PROT 7.1 g/dl (6.4-8.2)
[2022-11-19 13:59] LABS: BILIRUBIN,TOTAL 0.4 mg/dL (0.2-1)
[2022-11-19] MEDS ORDERED: Methylnaltrexone Bromide 12 MG/0.6 ML KIT SQ ONE ×2 (15:36→16:00)
[2022-11-19 16:17] VITALS: BP 142/80; PULSE 73
[2022-11-19] MEDS ORDERED: SENNOSIDES/DOCUSATE COMBO (SENNA PLUS) TABLET (UD) PO ONE (16:28)
[2022-11-19] MEDS ORDERED: MINERAL OIL ENEMA 133 ML ENEMA PR ONE (16:28)
[2022-11-19] MEDS ORDERED: METOCLOPRAMIDE HCL INJECTION 10 MG/2 ML VIAL IVPUSH ONE (16:53)
[2022-11-19] MEDS ORDERED: METOCLOPRAMIDE HCL INJECTION 10 MG/2 ML VIAL ONE (16:56)
[2022-11-19 17:19] LABS: URINE APPEARANCE CLEAR; URINE BILIRUBIN NEGATIVE (NEGATIVE); URINE COLOR YELLOW; URINE GLUCOSE (UA) NEGATIVE (NEGATIVE); URINE KETONE NEGATIVE (NEGATIVE)
[2022-11-19 17:20] LABS: EPI CELLS 1.7 /uL (0-25.1); HYALINE CASTS 0.12 /uL (0-3.1); URINE BACTERIA 0.9 /uL (0-1359); URINE LEUK ESTERASE NEGATIVE (NEGATIVE); URINE NITRITE NEGATIVE (NEGATIVE); URINE PROTEIN NEGATIVE (NEGATIVE); URINE UROBILINOGEN 0.2 mg/dL (0.2-1.0); URINE WBC 2.1 /uL (0-25.8)
== END 2022-11-19 18:22 | disposition home or self-care (01) ==
LOC: JER 12:07
PROC: 3E023GC Introduction of Other Therapeutic Substance into Muscle, Percutaneous Approach (ICD-10-PCS; principal; 2022-11-19)
PROC: 3E033GC Introduction of Other Therapeutic Substance into Peripheral Vein, Percutaneous Approach (ICD-10-PCS; principal; 2022-11-19)
DX: K59.03 Drug induced constipation (principal)
CPT/HCPCS: 0241U-QW; 36415; 71045-TC-FY; 74174-TC; 80053; 81003; 83605; 83690; 84484; 85025; 85610; 85730; 86850; 86900; 86901; 87086; 93005; 93010; 99285-25

== ENCOUNTER 2023-01-18 00:39 | Emergency (ER) | payer BC ==
[2023-01-18 00:45] VITALS: TEMP 97.4; BMI 23.3
[2023-01-18] MEDS ORDERED: morphine CARPU-JECT 4 MG/1 ML DISP.SYRIN IVPUSH ONE (01:56)
[2023-01-18] MEDS ORDERED: morphine SULFATE 4 MG/ML VIAL ONE (02:06)
[2023-01-18 02:12] LABS: BASO % 0.8 % (0-2.0); EOS % 2.3 % (0-4.5); HEMATOCRIT 46.7 % (35.4-49); HEMOGLOBIN 16.2 GM/dL (11.7-16.9); LYMPH % 36.7 % (8-40); MCH 31.3 pg (25.7-33.7); MCHC 34.7 g/dl (32.0-35.9); MEAN CELL VOLUME 90.1 fl (80-96); MEAN PLT VOLUME 7.4 fl (7.5-11.1); MONO % 7.3 % (3.8-10.2); NEUT % 52.9 % (42.8-82.8); PLATELET COUNT 231 10^3/uL (134-434); RBC 5.18 M/mm3 (4.00-5.60); RDW 14.1 % (11.9-15.9); WHITE BLOOD COUNT 7.9 K/mm3 (4.0-10.0)
[2023-01-18 02:30] LABS: POTASSIUM 4.1 mmol/L (3.5-5.1)
[2023-01-18 02:32] VITALS: BP 163/94; PULSE 78; RESP 20
[2023-01-18 02:33] LABS: ALBUMIN 3.9 g/dl (3.4-5.0); CALCIUM 9.1 mg/dL (8.5-10.1); MAGNESIUM 1.8 mg/dL (1.8-2.4)
[2023-01-18 02:36] LABS: CREATININE 0.7 mg/dL (0.55-1.3)
[2023-01-18 02:37] LABS: TOT PROT 7.2 g/dl (6.4-8.2)
[2023-01-18 02:38] LABS: BILIRUBIN,TOTAL 0.4 mg/dL (0.2-1)
== END 2023-01-18 05:09 | disposition left against medical advice (07) ==
LOC: JER 00:39
DX: R07.9 Chest pain, unspecified (principal)
CPT/HCPCS: 36415; 71045-TC-FY; 71275-TC; 74174-TC; 80053; 83690; 83735; 84484; 85025; 93005; 93010; 99285-25; Q9967

== ENCOUNTER 2023-01-25 09:48 | Day surgery (SDC) | payer BC ==
[2023-01-17 13:37] VITALS: BMI 23.3
[2023-01-25] MEDS ORDERED: PROPOFOL 40 ML ONE (14:03)
[2023-01-25 15:57] VITALS: BP 128/78; PULSE 70; RESP 19; TEMP 97.8
== END 2023-01-25 15:08 | disposition home or self-care (01) ==
LOC: FASU-ENDO 09:48
PROVIDERS: ATTEND Internal Medicine Gastroenterology
PROC: 0DB68ZX Excision of Stomach, Via Natural or Artificial Opening Endoscopic, Diagnostic (ICD-10-PCS; 2023-01-25)
PROC: 0DB48ZX Excision of Esophagogastric Junction, Via Natural or Artificial Opening Endoscopic, Diagnostic (ICD-10-PCS; 2023-01-25)
PROC: 0DB98ZX Excision of Duodenum, Via Natural or Artificial Opening Endoscopic, Diagnostic (ICD-10-PCS; principal; 2023-01-25 14:19)
DX: K29.50 Unspecified chronic gastritis without bleeding (principal); K20.90 Esophagitis, unspecified without bleeding; K44.9 Diaphragmatic hernia without obstruction or gangrene; B96.81 Helicobacter pylori [H. pylori] as the cause of diseases classified elsewhere; R10.13 Epigastric pain
CPT/HCPCS: 88305-TC; 88342-TC

== ENCOUNTER 2023-04-02 21:31 | Emergency (ER) | payer BC ==
[2023-04-02 21:56] VITALS: BP 160/91; PULSE 77; RESP 18; TEMP 98.1; BMI 22.6
[2023-04-03] MEDS ORDERED: FAMOTIDINE 20 MG/50 ML IVPB 20 MG/50 ML MG IVPB ONE ×2 (00:12→00:36)
[2023-04-03] MEDS ORDERED: morphine CARPU-JECT 4 MG/1 ML DISP.SYRIN IVPUSH ONE (00:32)
[2023-04-03] MEDS ORDERED: ONDANSETRON 4 MG/2 ML VIAL IVPUSH ONE (00:32)
[2023-04-03 01:07] LABS: BASO % 0.9 % (0-2.0); EOS % 1.9 % (0-4.5); HEMATOCRIT 45.2 % (35.4-49); HEMOGLOBIN 15.7 GM/dL (11.7-16.9); LYMPH % 23.5 % (8-40); MCH 30.9 pg (25.7-33.7); MCHC 34.8 g/dl (32.0-35.9); MEAN PLT VOLUME 6.8 fl (7.5-11.1); MONO % 10.6 % (3.8-10.2); NEUT % 63.1 % (42.8-82.8); PLATELET COUNT 244 10^3/uL (134-434); RBC 5.08 M/mm3 (4.00-5.60); RDW 13.8 % (11.9-15.9); WHITE BLOOD COUNT 7.5 K/mm3 (4.0-10.0)
[2023-04-03] MEDS ORDERED: ONDANSETRON 4 MG/2 ML VIAL ONE (01:16)
[2023-04-03] MEDS ORDERED: morphine SULFATE 4 MG/ML VIAL ONE (01:16)
[2023-04-03 01:18] LABS: INR 1.02 (0.83-1.09); PROTHROMBIN TIME (PATIENT) 11.8 SEC (9.7-13.0)
[2023-04-03 01:21] LABS: ACTIVATED PTT 30.9 SECONDS (25.2-36.5)
[2023-04-03 01:24] LABS: POTASSIUM 4.5 mmol/L (3.5-5.1)
[2023-04-03 01:26] LABS: CALCIUM 9.6 mg/dL (8.5-10.1)
[2023-04-03 01:27] LABS: BLOOD UREA NITROGEN 12.2 mg/dL (7-18)
[2023-04-03 01:30] LABS: CREATININE 0.7 mg/dL (0.55-1.3)
[2023-04-03 01:31] LABS: BILIRUBIN,TOTAL 0.6 mg/dL (0.2-1); TOT PROT 7.2 g/dl (6.4-8.2)
[2023-04-03 01:35] LABS: N-TERMINAL BNP 47.8 pg/ml (5-125)
== END 2023-04-03 03:52 | disposition home or self-care (01) ==
LOC: JER 21:31
DX: R10.13 Epigastric pain (principal)
CPT/HCPCS: 36415; 71045-TC-FY; 74177-TC; 76705-TC; 80053; 83605; 83690; 83880; 84484; 85025; 85610; 85730; 93005; 93010; 99281-25; C9803-CS; Q9967; U0003; U0005

== ENCOUNTER 2023-05-23 05:29 | Day surgery (SDC) | payer BC ==
[2023-05-22 10:38] VITALS: BMI 22.8
[2023-05-23 13:52] VITALS: TEMP 97.7
[2023-05-23 14:35] VITALS: BP 132/80; PULSE 64; RESP 16
== END 2023-05-23 14:47 | disposition home or self-care (01) ==
LOC: JASU-ENDO 05:29
PROVIDERS: ATTEND Internal Medicine Gastroenterology
PROC: 0DBL8ZX Excision of Transverse Colon, Via Natural or Artificial Opening Endoscopic, Diagnostic (ICD-10-PCS; 2023-05-23)
PROC: 0DBM8ZX Excision of Descending Colon, Via Natural or Artificial Opening Endoscopic, Diagnostic (ICD-10-PCS; principal; 2023-05-23 12:00)
DX: Z12.11 Encounter for screening for malignant neoplasm of colon (principal); D12.3 Benign neoplasm of transverse colon; D12.4 Benign neoplasm of descending colon; K64.8 Other hemorrhoids; I10 Essential (primary) hypertension
CPT/HCPCS: 88305-TC

== ENCOUNTER 2024-01-25 01:20 | Observation (INO) | payer BC ==
[2024-01-25 01:29] VITALS: BMI 24.0
[2024-01-25] MEDS ORDERED: KETOROLAC TROMETHAMINE 60 MG/2 ML VIAL ONE (01:45)
[2024-01-25] MEDS ORDERED: LIDOCAINE 4% PATCH TP ONE ×2 (01:45→14:20)
[2024-01-25] MEDS: LIDOCAINE 5% TOPICAL PATCH TP ONE (01:53)
[2024-01-25] MEDS: KETOROLAC TROMETHAMINE 60 MG/2 ML VIAL IM ONE (01:54)
[2024-01-25] MEDS: morphine CARPU-JECT 2 MG/1 ML DISP.SYRIN IM ONE (01:54)
[2024-01-25] MEDS ORDERED: ONDANSETRON *ODT* 4 MG TABLET ONE (06:23)
[2024-01-25] MEDS: ONDANSETRON *ODT* 4 MG TABLET SL ONE (06:28)
[2024-01-25] MEDS ORDERED: ACETAMINOPHEN INJECTION 100 ML IVPB ONE ×2 (06:35→16:37)
[2024-01-25] MEDS ORDERED: FAMOTIDINE 20 MG/50 ML IVPB 20 MG/50 ML MG IVPB ONE (06:35)
[2024-01-25 06:39] LABS: BASO % 0.9 % (0-2.0); EOS % 0.5 % (0-4.5); HEMATOCRIT 43.2 % (35.4-49); HEMOGLOBIN 15.2 GM/dL (11.7-16.9); LYMPH % 18.2 % (8-40); MCH 32.1 pg (25.7-33.7); MCHC 35.2 g/dl (32.0-35.9); MEAN CELL VOLUME 91.3 fl (80-96); MEAN PLT VOLUME 6.8 fl (7.5-11.1); MONO % 10.5 % (3.8-10.2); NEUT % 69.9 % (42.8-82.8); PLATELET COUNT 184 10^3/uL (134-434); RBC 4.74 M/mm3 (4.00-5.60); RDW 14.3 % (11.9-15.9); WHITE BLOOD COUNT 10.1 K/mm3 (4.0-10.0)
[2024-01-25] MEDS: FAMOTIDINE 20 MG/50 ML IVPB 20 MG/50 ML MG IVPB ONE (06:41)
[2024-01-25] MEDS: ACETAMINOPHEN 1000 MG/100 ML BAG IVPB ONE (06:41)
[2024-01-25 06:53] LABS: POTASSIUM 4.3 mmol/L (3.5-5.1)
[2024-01-25 06:55] LABS: BLOOD UREA NITROGEN 15.4 mg/dL (7-18); CALCIUM 9.3 mg/dL (8.5-10.1)
[2024-01-25 06:56] LABS: ALBUMIN 3.6 g/dl (3.4-5.0)
[2024-01-25 06:59] LABS: CREATININE 0.8 mg/dL (0.55-1.3)
[2024-01-25 07:00] LABS: BILIRUBIN,TOTAL 1.2 mg/dL (0.2-1); TOT PROT 6.6 g/dl (6.4-8.2)
[2024-01-25] MEDS ORDERED: METOCLOPRAMIDE HCL INJECTION 10 MG/2 ML VIAL ONE (09:45)
[2024-01-25 09:54] LABS: ERYTHROCYTE SEDIMENTATION RATE 16 mm/hr (0-20)
[2024-01-25] MEDS: METOCLOPRAMIDE HCL INJECTION 10 MG/2 ML VIAL IVPB ONE (10:01)
[2024-01-25] MEDS ORDERED: ACETAMINOPHEN 1000 MG/100 ML BAG IVPB PRN ×2 (10:31→12:38)
[2024-01-25] MEDS ORDERED: ALBUTEROL SO4 0.083% IH SOL 2.5 MG/3 ML VIAL.NEB. NEB PRN (10:31)
[2024-01-25] MEDS ORDERED: KETOROLAC TROMETHAMINE 30 MG/1 ML VIAL IVPUSH PRN (10:32)
[2024-01-25] MEDS ORDERED: PANTOPRAZOLE SODIUM 40 MG/100 ML BAG IVPB ONE ×2 (11:56→22:11)
[2024-01-25] MEDS: PANTOPRAZOLE SODIUM 40 MG VIAL IVPUSH SCH (12:00)
[2024-01-25] MEDS: LISINOPRIL 10 MG TABLET PO SCH (12:00)
[2024-01-25] MEDS: LOSARTAN POTASSIUM 50 MG TABLET PO SCH (12:00)
[2024-01-25] MEDS ORDERED: SIMETHICONE 80 MG TAB.CHEW (FP) ONE ×2 (14:16→22:10)
[2024-01-25] MEDS ORDERED: methylPREDNISolone NA SUCC 40 MG/1 ML VIAL ONE (14:16)
[2024-01-25] MEDS: SIMETHICONE 80 MG TAB.CHEW (FP) PO SCH (14:25)
[2024-01-25] MEDS: LIDOCAINE 4% PATCH TP SCH (14:25)
[2024-01-25] MEDS: methylPREDNISolone NA SUCC 40 MG/1 ML VIAL IVPUSH SCH (14:25)
[2024-01-25] MEDS: ACETAMINOPHEN 1000 MG/100 ML BAG IVPB PRN (17:00)
[2024-01-25] MEDS ORDERED: LIDOCAINE PATCH REMOVAL MC SCH (22:00)
[2024-01-25] MEDS ORDERED: ATORVASTATIN CA 10 MG TABLET (FP) ONE (22:10)
[2024-01-25] MEDS: ATORVASTATIN CA 10 MG TABLET (FP) PO SCH (22:18)
[2024-01-25] MEDS: LIDOCAINE PATCH REMOVAL MC SCH (22:19)
[2024-01-26] MEDS ORDERED: FLUTICASONE/UMECLIDIN/VILANTER(100-62.5-25 TRELEGY ELLIPTA) INAHLER IH SCH (10:00)
[2024-01-26 10:10] VITALS: BP 151/81; PULSE 85; RESP 20; TEMP 97.1
== END 2024-01-26 10:26 | disposition home or self-care (01) ==
LOC: JER 01:20 → JERBED 09:21
PROVIDERS: ADMIT Internal Medicine; ATTEND Internal Medicine
PROC: 3E033NZ Introduction of Analgesics, Hypnotics, Sedatives into Peripheral Vein, Percutaneous Approach (ICD-10-PCS; principal; 2024-01-25)
PROC: 3E033GC Introduction of Other Therapeutic Substance into Peripheral Vein, Percutaneous Approach (ICD-10-PCS; 2024-01-25)
PROC: 3E0233Z Introduction of Anti-inflammatory into Muscle, Percutaneous Approach (ICD-10-PCS; 2024-01-25)
PROC: 3E023NZ Introduction of Analgesics, Hypnotics, Sedatives into Muscle, Percutaneous Approach (ICD-10-PCS; 2024-01-25)
DX: J44.9 Chronic obstructive pulmonary disease, unspecified (principal); I48.91 Unspecified atrial fibrillation; I48.0 Paroxysmal atrial fibrillation; K29.70 Gastritis, unspecified, without bleeding; I10 Essential (primary) hypertension; R10.13 Epigastric pain; R10.9 Unspecified abdominal pain; R09.3 Abnormal sputum; R51.9 Headache, unspecified; F17.210 Nicotine dependence, cigarettes, uncomplicated
CPT/HCPCS: 36415; 70450-TC; 72125-TC; 73030-TC-LT-FY; 80053; 85025; 85651; 86140; 93005; 93010; 99285-25; G0378; J0131; Q0162